=== PATIENT | female | born 1995 | race Caucasian/White ===

== ENCOUNTER → 2016-10-22 | Outpatient (CLI) | payer BC, OTHER ==
[~2016-10-22] MED LIST: CLIN2CRE PV; ESCI10TA17 PO; LISD30CA4 PO; PENC1CRE4 TOP; PREN1TAB51 PO; PRENTAB26 PO; ZIPR20CA PO; ZOLP10TA PO
[2016-10-22 13:45] LABS: PREG INTERNAL NEGATIVE QC NEG CLEAR BACKGROUND; PREG INTERNAL POSITIVE QC POS CONTROL LINE
== END | disposition home or self-care (01) ==
LOC: C.LABSPEC 14:27
PROVIDERS: ATTEND Obstetrics & Gynecology
DX: Z30.45 Encounter for surveillance of transdermal patch hormonal contraceptive device (principal)

== ENCOUNTER → 2016-10-22 | Outpatient (CLI) | payer BC | END | disposition home or self-care (01) | LOC: C.PAPS 13:46 | PROVIDERS: ATTEND Obstetrics & Gynecology | DX: N87.0 Mild cervical dysplasia (principal) ==

== ENCOUNTER → 2016-11-02 | Outpatient (CLI) | payer BC ==
--- NOTE | 2016-11-02 16:49 | DIAGNOSTIC IMAGING REPORT ---
CT OF THE ABDOMEN AND PELVIS WITHOUT CONTRAST, STONE PROTOCOL CLINICAL HISTORY: Left flank pain. COMPARISON STUDY: Pelvic ultrasound March 29, 2014. TECHNIQUE: Helical axial images of the abdomen and pelvis were obtained without IV or oral contrast according to renal stone protocol. FINDINGS: Lung bases are clear. No renal, ureteral or bladder calculi are present. There is no hydronephrosis or hydroureter. The caliber of small large bowel are normal. The appendix is normal. A tampon is in place. No ascites is present. There is no lymphadenopathy. The ovaries are not enlarged. Skeletal structures are unremarkable. No biliary or pancreatic ductal dilatation is present. There is no peripancreatic or pericholecystic infiltration. IMPRESSION: 1. No urinary calculi or hydronephrosis. 2. No acute process within the abdomen or pelvis. Electronically signed by: Amaury Hamilton M.D. 11/02/2016 4:47 PM Dictated Date/Time: 11/02/2016 4:41 PM
== END | disposition home or self-care (01) ==
LOC: C.CTS 16:26
PROVIDERS: ATTEND Nurse Practitioner
DX: R10.9 Unspecified abdominal pain (principal)

== ENCOUNTER → 2016-12-17 | Outpatient (CLI) | payer BC, OTHER ==
[2016-12-17 12:45] LABS: BASO % 0.3 %; BASO ABS # 0.03 K/uL (0-0.2); COMPLETE YES; EOS % 0.3 %; HEMATOCRIT 40.8 % (37-47); IG% 0.3 %; LYMPH % 13.1 %; LYMPH ABS # 1.55 K/uL (1.2-3.4); MEAN CELL VOLUME 84.5 fL (80-100); MEAN CORPUSCULAR HEMOGLOBIN 29.2 pg (25-34); MEAN CORPUSCULAR HGB CONC 34.6 g/dl (32-36); MEAN PLATELET VOLUME 10.4 fL (7.4-10.4); MONO % 6.2 %; NEUT % 79.8 %; PLATELET COUNT 214 K/uL (130-400); RED BLOOD COUNT 4.83 M/uL (4.2-5.4)
[2016-12-17 12:53] LABS: ALT/SGPT 29 U/L (12-78); AST/SGOT 11 U/L (15-37); BLOOD UREA NITROGEN 9 mg/dl (7-18); BUN/CREATININE RATIO 11.6 (10-20); CALCIUM 9.6 mg/dl (8.5-10.1); CARBON DIOXIDE 22 mmol/L (21-32); CHLORIDE 104 mmol/L (98-107); CHOLESTEROL 118 mg/dl (0-200); CREATININE 0.81 mg/dl (0.60-1.20); GLUCOSE 89 mg/dl (70-99); MAGNESIUM 2.2 mg/dl (1.8-2.4); POTASSIUM 3.7 mmol/L (3.5-5.1); SODIUM 141 mmol/L (136-145); TRIGLYCERIDES 48 mg/dl (0-150); VERY LOW DENSITY LIPOPROT CALC 10 mg/dl
[2016-12-17 13:01] LABS: ALB/GLOB RATIO 1.1 (0.9-2); ALKALINE PHOSPHATASE 67 U/L (45-117); CHOLESTEROL/HDL RATIO 2.4; HDL CHOLESTEROL 50 mg/dl; LDL CHOLESTEROL CALCULATED 58 mg/dl; THYROID STIMULATING HORMONE 0.485 uIu/ml (0.300-4.500); TOTAL IRON BINDING CAPACITY 349 mcg/dl (250-450)
[2016-12-17 13:12] LABS: BENZODIAZEPINE, URINE NEG (NEG); COCAINE,URINE NEG (NEG); PHENCYCLIDINE, URINE NEG (NEG)
--- NOTE | 2016-12-21 09:49 | CODING QUERY MEDICAL NECESSITY ---
SUPPORTING DIAGNOSIS NEEDED A supporting diagnosis is required for the test/procedure performed on this patient in order for us to be reimbursed by the patient's insurance. Please provide a supporting diagnosis for the following test/procedure listed below next to the test name along with your signature. *If there is no additional diagnosis for this patient that would support the following test/procedure please document that below next to the test/procedure. Test(s)/Procedure(s) that require a supporting diagnosis: * VITAMIN D 25-HYDROXY DIAGNOSIS: * URINE DRUG SCREEN DIAGNOSIS: * VITAMIN B-12 LEVEL DIAGNOSIS: * FOLATE LEVEL DIAGNOSIS: * DOS: 12/17/16 Provider Signature: Date: Thank you Jennifer Kaye Health Information Management Once completed, please kindly fax back to [phone] For questions please call [phone]
== END | disposition home or self-care (01) ==
LOC: C.LABBFT 11:04
PROVIDERS: ATTEND Psychiatry & Neurology Psychiatry
DX: F41.0 Panic disorder [episodic paroxysmal anxiety] (principal); Z13.21 Encounter for screening for nutritional disorder

== ENCOUNTER 2016-12-27 15:16 | Emergency (ER) | payer BC, OTHER ==
[~2016-12-27] VITALS: Ht 160 cm; Wt 69.9 kg
[~2016-12-27 15:16] MED LIST changes: -CLIN2CRE PV; -LISD30CA4 PO; -PENC1CRE4 TOP; -PREN1TAB51 PO; -ZIPR20CA PO; -ZOLP10TA PO
[2016-12-27 15:20] VITALS: TEMP 36.7; Ht 160 cm; Wt 69.9 kg
[2016-12-27] MEDS ORDERED: ONDANSETRON INJ 2 MG/ML 2 ML VIAL IV STA (15:35)
[2016-12-27] MEDS ORDERED: ZOLP10TA PO (15:48)
[2016-12-27] MEDS ORDERED: LISD30CA4 PO (15:48)
[2016-12-27] MEDS ORDERED: ZIPR20CA PO (15:48)
[2016-12-27 15:49] VITALS: O2SAT 99
--- NOTE | 2016-12-27 15:56 | DIAGNOSTIC IMAGING REPORT ---
CHEST ONE VIEW PORTABLE CLINICAL HISTORY: Evaluate Fever/Sepsis dyspnea COMPARISON STUDY: No previous studies for comparison. FINDINGS: The bones soft tissues and hemidiaphragms are normal. The cardiomediastinal silhouette is normal. The lungs are clear. The pulmonary vasculature is normal. IMPRESSION: Negative chest. Electronically signed by: Loco Perez M.D. 12/27/2016 3:55 PM Dictated Date/Time: 12/27/2016 3:54 PM
[2016-12-27 16:12] LABS: BASO % 0.4 %; BASO ABS # 0.04 K/uL (0-0.2); COMPLETE YES; EOS % 0.7 %; HEMATOCRIT 44.4 % (37-47); IG% 0.3 %; LYMPH % 39.8 %; LYMPH ABS # 3.54 K/uL (1.2-3.4); MEAN CELL VOLUME 83.8 fL (80-100); MEAN CORPUSCULAR HEMOGLOBIN 29.1 pg (25-34); MEAN CORPUSCULAR HGB CONC 34.7 g/dl (32-36); MEAN PLATELET VOLUME 9.9 fL (7.4-10.4); MONO % 6.9 %; NEUT % 51.9 %; PLATELET COUNT 318 K/uL (130-400); WHITE BLOOD COUNT 8.89 K/uL (4.8-10.8)
[2016-12-27 16:27] LABS: ALT/SGPT 30 U/L (12-78); AST/SGOT 11 U/L (15-37); BLOOD UREA NITROGEN 6 mg/dl (7-18); BUN/CREATININE RATIO 7.7 (10-20); CALCIUM 9.8 mg/dl (8.5-10.1); CARBON DIOXIDE 29 mmol/L (21-32); CHLORIDE 103 mmol/L (98-107); CREATININE 0.74 mg/dl (0.60-1.20); GLUCOSE 85 mg/dl (70-99); POTASSIUM 3.6 mmol/L (3.5-5.1); SODIUM 139 mmol/L (136-145)
[2016-12-27 16:38] LABS: ALKALINE PHOSPHATASE 70 U/L (45-117); CKMB/CK RATIO 0.7 (0-3.0); THYROID STIMULATING HORMONE 0.335 uIu/ml (0.300-4.500)
--- NOTE | 2016-12-27 17:17 | EMERGENCY ROOM VISIT NOTE ---
History Report prepared by Glynn: Alex Queen Under the Supervision of: Dr. Sidney Mahajan D.O. First contact with patient: 15:28 Chief Complaint: CHEST PAIN Stated Complaint: HEART RHYTHM /PAIN, FINGER/TOE NUMB, N, CONN, VISION Nursing Triage Summary: Pt presents with c/o "I've been feeling sick for a few days. My chest hurts. My heart feels funny. I get numbness and tingling in my arms and legs. I get nausea. I take some daily medications and I don't know if they are being filtered out as fast as they are put in. I can't stop clenching my jaw." History of Present Illness The patient is a 21 year old female who presents to the Emergency Room with complaints of persistent chest discomfort for the past several days. The patient describes a tight sensation in her chest. She also complains of lightheadedness, nausea, and tingling in her fingers and toes for the past several days. The patient is concerned that her symptoms could be related to Vyvanse use She takes Vyvanse for ADD. The patient noted that she "cannot stop clenching her jaw." Her LNMP ended yesterday, which was normal. She has a two year old child at home. Source of History: patient Onset: several days Position: chest Quality: other (tightness) Timing: other (persistent) Associated Symptoms: + nausea, + numbness Review of Systems See HPI for pertinent positives & negatives. A total of 10 systems reviewed and were otherwise negative. Past Medical & Surgical Medical Problems: (1) Ear infection (2) Migraines Surgical Problems: (1) History of tonsillectomy (2) [place] teeth extracted Family History No pertinent family history Social History Smoking Status: Former Smoker Alcohol Use: none Marital Status: single Housing Status: lives with family Occupation Status: unemployed Current/Historical Medications Scheduled Lisdexamfetamine Dimesylate (Vyvanse), 30 MG PO QAM Ziprasidone Hcl (Geodon), 25 MG PO QPM Zolpidem Tartrate (Ambien), 10 MG PO HS Allergies Coded Allergies: Diphenhydramine (Verified Allergy, Mild, ITCHING, 12/27/16) Physical Exam Vital Signs Date Time Temp Pulse Resp B/P Pulse Ox O2 Delivery O2 Flow Rate FiO2 12/27/16 16:00 100 Room Air 12/27/16 15:54 76 12/27/16 15:49 99 Room Air 12/27/16 15:20 36.7 82 18 124/86 98 Room Air Physical Exam CONSTITUTIONAL/VITAL SIGNS: Reviewed / noted above. GENERAL: Non-toxic in appearance. INTEGUMENTARY: Warm, dry, and [place]. HEAD: Normocephalic. EYES: without scleral icterus or trauma. ENT/OROPHARYNX: clear and moist. LYMPHADENOPATHY/NECK: Is supple without lymphadenopathy or meningismus. RESPIRATORY: Lungs clear and equal. CARDIOVASCULAR: Regular rate and rhythm. GI/ABDOMEN: Soft and nontender. No organomegaly or pulsatile mass. No rebound or guarding. Normal bowel sounds. EXTREMITIES: Warm and well perfused. BACK: No CVA tenderness. NEUROLOGICAL: Intact without focal deficits. PSYCHIATRIC: normal affect. MUSCULOSKELETAL: Normally developed with good muscle tone. Medical Decision & Procedures ER Provider Diagnostic Interpretation: X ray results and stated below per my interpretation and radiology interpretation. CHEST ONE VIEW PORTABLE CLINICAL HISTORY: Evaluate Fever/Sepsis dyspnea COMPARISON STUDY: No previous studies for comparison. FINDINGS: The bones soft tissues and hemidiaphragms are normal. The cardiomediastinal silhouette is normal. The lungs are clear. The pulmonary vasculature is normal. IMPRESSION: Negative chest. Electronically signed by: Loco Perez M.D. 12/27/2016 3:55 PM Dictated Date/Time: 12/27/2016 3:54 PM Laboratory Results 12/27/16 16:00 Red Blood Count 5.30, Mean Corpuscular Volume 83.8, Mean Corpuscular Hemoglobin 29.1, Mean Corpuscular Hemoglobin Concent 34.7, Mean Platelet Volume 9.9, Neutrophils (%) (Auto) 51.9, Lymphocytes (%) (Auto) 39.8, Monocytes (%) (Auto) 6.9, Eosinophils (%) (Auto) 0.7, Basophils (%) (Auto) 0.4, Neutrophils # (Auto) 4.61, Lymphocytes # (Auto) 3.54, Monocytes # (Auto) 0.61, Eosinophils # (Auto) 0.06, Basophils # (Auto) 0.04 12/27/16 16:00 Test 12/27/16 16:00 White Blood Count 8.89 K/uL (4.8-10.8) Red Blood Count 5.30 M/uL (4.2-5.4) Hemoglobin 15.4 g/dL (12.0-16.0) Hematocrit 44.4 % (37-47) Mean Corpuscular Volume 83.8 fL (80-100) Mean Corpuscular Hemoglobin 29.1 pg (25-34) Mean Corpuscular Hemoglobin Concent 34.7 g/dl (32-36) Platelet Count 318 K/uL (130-400) Mean Platelet Volume 9.9 fL (7.4-10.4) Neutrophils (%) (Auto) 51.9 % Lymphocytes (%) (Auto) 39.8 % Monocytes (%) (Auto) 6.9 % Eosinophils (%) (Auto) 0.7 % Basophils (%) (Auto) 0.4 % Neutrophils # (Auto) 4.61 K/uL (1.4-6.5) Lymphocytes # (Auto) 3.54 K/uL (1.2-3.4) Monocytes # (Auto) 0.61 K/uL (0.11-0.59) Eosinophils # (Auto) 0.06 K/uL (0-0.5) Basophils # (Auto) 0.04 K/uL (0-0.2) RDW Standard Deviation 42.4 fL (36.4-46.3) RDW Coefficient of Variation 13.9 % (11.5-14.5) Immature Granulocyte % (Auto) 0.3 % Immature Granulocyte # (Auto) 0.03 K/uL (0.00-0.02) Anion Gap 7.0 mmol/L (3-11) Est Creatinine Clear Calc Drug Dose 111.8 ml/min Estimated GFR () 133.3 Estimated GFR (Non- 115.0 BUN/Creatinine Ratio 7.7 (10-20) Calcium Level 9.8 mg/dl (8.5-10.1) Total Bilirubin 0.4 mg/dl (0.2-1) Direct Bilirubin < 0.1 mg/dl (0-0.2) Aspartate Amino Transf (AST/SGOT) 11 U/L (15-37) Alanine Aminotransferase (ALT/SGPT) 30 U/L (12-78) Alkaline Phosphatase 70 U/L (45-117) Total Creatine Kinase 121 U/L (26-192) Creatine Kinase MB 0.9 ng/ml (0.5-3.6) Creatine Kinase MB Ratio 0.7 (0-3.0) Troponin I < 0.015 ng/ml (0-0.045) Total Protein 7.9 gm/dl (6.4-8.2) Albumin 4.4 gm/dl (3.4-5.0) Lipase 167 U/L (73-393) Thyroid Stimulating Hormone (TSH) 0.335 uIu/ml (0.300-4.500) Laboratory results as stated above per my review. Medications Administered Medications (Trade) Dose Ordered Sig/Ry Route Start Time Stop Time Status Last Admin Dose Admin Ondansetron HCl (Zofran Inj) 4 mg NOW STAT IV 12/27/16 15:35 12/27/16 15:37 DC 12/27/16 15:58 4 MG ECG Indication: chest pain Rate (beats per minute): 65 Rhythm: normal sinus Findings: no acute ischemic change, no ectopy ED Course 1535: Previous medical records were reviewed. The patient was evaluated in room B5. A complete history and physical examination was performed. 1535: Zofran 4 mg IV. 1730: Reassessed the patient. Discussed the discharge instructions with her. She verbalized understanding and agreement. The patient is ready for discharge. Medical Decision Differential considered includes acute myocardial infarction, acute coronary syndrome, myocarditis, pericarditis, pericardial effusions /tamponade, esophageal perforation, thoracic aortic dissection, pulmonary embolism, pneumonia, pneumothorax, pancreatitis, shingles, acute cholecystitis, perforated abdominal viscus. This is a 21-year-old female who presents to the ED with a chief complaint of chest pain, lightheadedness as well as tingling in her fingers and toes. The patient's symptoms started several days ago. She has the symptoms intermittently. She describes the chest pain as a tightness in her chest. She has associated nausea. Her physical exam was normal. Vital signs are stable. CBC is normal. Complete metabolic panel was normal. Troponin is negative. TSH was normal. A chest x-ray did not show acute disease. EKG shows a normal sinus rhythm. The patient was told results the test. She is in no distress and is felt to be stable for discharge. Impression Primary Impression: Chest tightness or pressure Additional Impression: Lightheaded Scribe Attestation The scribe's documentation has been prepared under my direction and personally reviewed by me in its entirety. I confirm that the note above accurately reflects all work, treatment, procedures, and medical decision making performed by me. Departure Information Dispostion Home / Self-Care Referrals Obinna Paige M.D. (PCP) Forms HOME CARE DOCUMENTATION FORM, IMPORTANT VISIT INFORMATION Patient Instructions My [facility] Additional Instructions Follow-up with your doctor for further care and evaluation in 1-2 days. Return to the emergency department for worsening or new symptoms or any concerns. You have been examined and treated today on an emergency basis only. This is not a substitute for, or an effort to provide, complete comprehensive medical care. It is impossible to recognize and treat all injuries or illnesses in a single emergency department visit. It is therefore important that you follow up closely with your doctor. Call as soon as possible for an appointment. Problem Qualifiers
[2016-12-27 18:07] VITALS: BP 114/68; PULSE 84; O2SAT 97
== END 2016-12-27 18:08 | disposition home or self-care (01) ==
LOC: C.EDB 15:18
DX: R07.9 Chest pain, unspecified (principal); R42 Dizziness and giddiness; Z87.891 Personal history of nicotine dependence; Z79.899 Other long term (current) drug therapy

== ENCOUNTER 2017-03-11 13:58 | Emergency (ER) | payer BC, OTHER ==
[~2017-03-11] VITALS: Ht 160 cm; Wt 70.3 kg
[~2017-03-11 13:58] MED LIST changes: -ESCI10TA17 PO; +LISD30CA4 PO; -PRENTAB26 PO; +ZIPR20CA PO; +ZOLP10TA PO
[2017-03-11 14:02] VITALS: TEMP 36.7; Ht 160 cm; Wt 70.3 kg
[2017-03-11 14:47] LABS: URINE APPEARANCE CLOUDY (CLEAR); URINE BILIRUBIN NEG (NEG); URINE COLOR YELLOW; URINE NITRITE NEG (NEG); URINE SPECIFIC GRAVITY 1.018 (1.000-1.030); UROBILINOGEN NEG (NEG); ZZUR CULT IF INDIC CLEAN CATCH NO
[2017-03-11 14:48] LABS: MANUAL MICROSCOPIC REQUIRED? NO; REVIEW REQ? NO
[2017-03-11 15:10] LABS: HEMATOCRIT 38.7 % (37-47); MEAN CELL VOLUME 87.2 fL (80-100); MEAN CORPUSCULAR HEMOGLOBIN 29.3 pg (25-34); MEAN CORPUSCULAR HGB CONC 33.6 g/dl (32-36); MEAN PLATELET VOLUME 9.9 fL (7.4-10.4); PLATELET COUNT 230 K/uL (130-400); RED BLOOD COUNT 4.44 M/uL (4.2-5.4); WHITE BLOOD COUNT 8.04 K/uL (4.8-10.8)
[2017-03-11 15:24] LABS: BUN/CREATININE RATIO 12.5 (10-20); CALCIUM 8.6 mg/dl (8.5-10.1); CREATININE 0.66 mg/dl (0.60-1.20); POTASSIUM 3.8 mmol/L (3.5-5.1)
[2017-03-11 15:27] LABS: ALB/GLOB RATIO 1.3 (0.9-2)
[2017-03-11 15:41] LABS: BASO % 0.4 %; BASO ABS # 0.03 K/uL (0-0.2); COMPLETE YES; EOS % 0.6 %; IG% 0.1 %; LYMPH % 26.4 %; LYMPH ABS # 2.12 K/uL (1.2-3.4); MONO % 7.3 %; NEUT % 65.2 %
[2017-03-11 15:44] LABS: PREG INTERNAL NEGATIVE QC NEG CLEAR BACKGROUND; PREG INTERNAL POSITIVE QC POS CONTROL LINE
--- NOTE | 2017-03-11 15:59 | EMERGENCY ROOM VISIT NOTE ---
History First contact with patient: 14:07 Chief Complaint: URINARY SYMPTOMS Stated Complaint: UTI - 4 TO 5 WEEKS Nursing Triage Summary: Pt reports painful urination and bilat flank pain History of Present Illness The patient is a 21 year old female who presents to the Emergency Room via private vehicle with complaints " UTI - 4-5 weeks ". The patient states that yesterday she noticed painful urination, and then pain radiating in the pelvic region to the back. She states that she has had pain similar to this in the past with frequent UTIs. She also notes a dull ache in the anterior inferior pelvic region for the past few weeks. She notes it is not a pain, rather just a dull ache. She denies any vaginal bleeding, cramping, vaginal discharge, concern for sexual transmitted infection. She has had a miscarriage in the past. She states that at home she has taken 6 urine tests all of which have been positive. She states that the first day of her last menstrual cycle was February 09. She states that she ovulated the and . She states that she started the urine test 10 day after, on March 05 and these were found to be positive. She states that she was seen at [facility], who jorje a quantitative hCG levels on March 08. These levels were subsequent found to be 39.5 after the record was accessed by our casework manager. Review of Systems A complete 10-point Review of Systems was discussed with the patient, with pertinent positives and negatives listed in the History of Present Illness. All remaining Review of Systems questions can be considered negative unless otherwise specified.6 Past Medical/Surgical History Medical Problems: (1) Ear infection (2) Migraines Surgical Problems: (1) History of tonsillectomy (2) [place] teeth extracted Family History Heart disease, blood pressure, cancer, kidney disease or stones, GI/autoimmune. Social History Smoking Status: Former Smoker Alcohol Use: none Marital Status: single Housing Status: lives with family Occupation Status: unemployed Current/Historical Medications No Active Prescriptions or Reported Meds Allergies Coded Allergies: Diphenhydramine (Verified Allergy, Mild, ITCHING, 03/11/17) Physical Exam Vital Signs Date Time Temp Pulse Resp B/P Pulse Ox O2 Delivery O2 Flow Rate FiO2 03/11/17 18:13 65 18 118/67 99 Room Air 03/11/17 16:06 69 18 115/73 100 Room Air 03/11/17 14:02 36.7 83 18 108/67 99 Room Air Physical Exam VITAL SIGNS - Vital signs and nursing notes were reviewed. Patient is afebrile , normotensive, non-tachycardic and is saturating well on room air at 99%. GENERAL -21-year-old female appearing her stated age who is in no acute distress. Communicates well with provider and answers questions appropriately. SKIN - Without rashes. The integument is unremarkable. HEAD - NC/AT. EYES - Sclera anicteric. Palpebral conjunctiva pink and moist with no injection noted. EARS - No deformities of external structures noted on gross examination bilaterally. LUNGS - Chest wall symmetric without accessory muscle use, intercostals retractions, or central cyanosis. Normal vesicular breath sounds CTA B/L. No wheezes, rales, or rhonchi appreciated. CARDIAC - RRR with S1/S2. No murmur, rubs, or gallops appreciated. ABDOMEN - Abdominal contour without pulsations or visible masses. BS normoactive all four quadrants. No tenderness, palpable masses, hepatosplenomegaly, or ascites noted. There is a generalized dull ache to palpation of the abdomen. No CVA tenderness. EXTREMITIES - No clubbing or peripheral cyanosis. No pretibial edema present. +5 /5 strength noted in UE/LE bilaterally. Medical Decision & Procedures ER Provider Diagnostic Interpretation: TRANSVAGINAL CLINICAL HISTORY: Pelvic pain, dysuria, +HCG. COMPARISON STUDY: ultrasound November 13, [address] of the abdomen and pelvis November 02, 2016. TECHNIQUE: Transabdominal and transvaginal sonography of the pelvis was performed. FINDINGS: The uterus measures 7.6 x 4 x 4.5 cm. The endometrium measures 7 mm in thickness. No intrauterine gestational sac is identified. The right ovary measures 3.1 x 1.7 x 2.1 cm. A 1.5 cm right ovarian lesion could reflect a corpus luteal cyst. The left ovary measures 3 x 1.3 x 2.5 cm. There was color flow within each ovary. Trace fluid within the cul-de-sac is likely physiologic. IMPRESSION: No intrauterine gestational sac identified. If positive test, differential considerations include a normal early intrauterine gestation, missed spontaneous and sonographically occult ectopic . Close clinical follow-up, including serial beta hCG levels, is recommended. Electronically signed by: Amaury Hamilton M.D. 03/11/2017 5:12 PM Dictated Date/Time: 03/11/2017 5:09 PM Laboratory Results 03/11/17 14:45 Red Blood Count 4.44, Mean Corpuscular Volume 87.2, Mean Corpuscular Hemoglobin 29.3, Mean Corpuscular Hemoglobin Concent 33.6, Mean Platelet Volume 9.9, Neutrophils (%) (Auto) 65.2, Lymphocytes (%) (Auto) 26.4, Monocytes (%) (Auto) 7.3, Eosinophils (%) (Auto) 0.6, Basophils (%) (Auto) 0.4, Neutrophils # (Auto) 5.24, Lymphocytes # (Auto) 2.12, Monocytes # (Auto) 0.59, Eosinophils # (Auto) 0.05, Basophils # (Auto) 0.03 03/11/17 14:45 Test 03/11/17 14:18 03/11/17 14:45 Urine Color YELLOW Urine Appearance CLOUDY (CLEAR) Urine pH 7.0 (4.5-7.5) Urine Specific [place] 1.018 (1.000-1.030) Urine Protein NEG (NEG) Urine Glucose (UA) NEG (NEG) Urine Ketones NEG (NEG) Urine Occult Blood NEG (NEG) Urine Nitrite NEG (NEG) Urine Bilirubin NEG (NEG) Urine Urobilinogen NEG (NEG) Urine Leukocyte Esterase NEG (NEG) Urine WBC (Auto) 1-5 /hpf (0-5) Urine RBC (Auto) 0-4 /hpf (0-4) Urine Hyaline Casts (Auto) 0 /lpf (0-5) Urine Epithelial Cells (Auto) 10-20 /lpf (0-5) Urine Bacteria (Auto) NEG (NEG) Urine Test NEG (NEG) White Blood Count 8.04 K/uL (4.8-10.8) Red Blood Count 4.44 M/uL (4.2-5.4) Hemoglobin 13.0 g/dL (12.0-16.0) Hematocrit 38.7 % (37-47) Mean Corpuscular Volume 87.2 fL (80-100) Mean Corpuscular Hemoglobin 29.3 pg (25-34) Mean Corpuscular Hemoglobin Concent 33.6 g/dl (32-36) Platelet Count 230 K/uL (130-400) Mean Platelet Volume 9.9 fL (7.4-10.4) Neutrophils (%) (Auto) 65.2 % Lymphocytes (%) (Auto) 26.4 % Monocytes (%) (Auto) 7.3 % Eosinophils (%) (Auto) 0.6 % Basophils (%) (Auto) 0.4 % Neutrophils # (Auto) 5.24 K/uL (1.4-6.5) Lymphocytes # (Auto) 2.12 K/uL (1.2-3.4) Monocytes # (Auto) 0.59 K/uL (0.11-0.59) Eosinophils # (Auto) 0.05 K/uL (0-0.5) Basophils # (Auto) 0.03 K/uL (0-0.2) RDW Standard Deviation 43.8 fL (36.4-46.3) RDW Coefficient of Variation 13.7 % (11.5-14.5) Immature Granulocyte % (Auto) 0.1 % Immature Granulocyte # (Auto) 0.01 K/uL (0.00-0.02) Red Blood Cell Morphology Unremarkable Anion Gap 1.0 mmol/L (3-11) Est Creatinine Clear Calc Drug Dose 125.7 ml/min Estimated GFR () 145.3 Estimated GFR (Non- 125.4 BUN/Creatinine Ratio 12.5 (10-20) Calcium Level 8.6 mg/dl (8.5-10.1) Total Bilirubin 0.4 mg/dl (0.2-1) Aspartate Amino Transf (AST/SGOT) 13 U/L (15-37) Alanine Aminotransferase (ALT/SGPT) 25 U/L (12-78) Alkaline Phosphatase 63 U/L (45-117) Total Protein 6.8 gm/dl (6.4-8.2) Albumin 3.8 gm/dl (3.4-5.0) Globulin 3.0 gm/dl (2.5-4.0) Albumin/Globulin Ratio 1.3 (0.9-2) Human Chorionic Gonadotropin, Qual POS (NEG) Human Chorionic Gonadotropin, Quant 12 mIU/mL Medical Decision Patient was seen and evaluated as above. After obtaining a thorough history and physical examination, it is apparent that the patient is presenting with urinary tract infection like symptoms. No evidence of pyelonephritis on examination. The patient stated that she used at home test, therefore when her urine sample was tested here I decided to also dipped for urine test. The urine test was found to be negative. The urine was also negative. This is now concerning for other etiologies. The patient notes that she did have a quantitative level drawn at [facility], but does not know the result. I did elect to establish IV access and obtain a value of hCG quantitative here. Our level was found to be 12, and that was today on March 11, this is compared to 39.5 which was found on March 08. There is concern for demise, and other complications of early . For this reason, benefit versus risk of obtaining ultrasound was discussed with the patient. It was decided to pursue the ultrasound. Results as above. No abnormalities identified. I suspect the patient is likely experiencing threatened miscarriage, and close follow-up with serial hCGs is warranted. The patient was thoroughly educated upon today's findings. She is to call her OB/ HUMAN RESOURCES ASSISTANT and family doctor tomorrow to inform them of today's findings, specifically to request follow-up and serial hCG levels. She seemed comfortable doing this. I do not suspect UTI. I suspect the patient's symptoms are likely secondary to that threatened miscarriage. I do believe that she is stable for discharge, extremity managed in the outpatient setting. I did speak with our casework manager regarding our walk-in lab hours to assist the patient. The patient is to have a repeat hCG drawn Saturday. She is to return here with any worsening symptoms or concerns. She was educated upon worrisome symptoms which to return , had questions prior to discharge, and was discharged home in good condition. In the evaluation and treatment of this patient following differential diagnoses were entertained: Ectopic , UTI, pyelonephritis, threatened miscarriage, among others. Impression Primary Impression: Threatened miscarriage Departure Information Dispostion Home / Self-Care Condition GOOD Prescriptions No Active Prescriptions or Reported Meds Referrals Obinna Paige M.D. (PCP) Patient Instructions My [facility] Additional Instructions You were seen in the emergency department for your painful urination and dull ache in the pelvis region. Your ultrasound results have been printed and provided to you. At this time we suspect you are experiencing a threatened miscarriage. If you develop increased pain, feeling of passing out, or any new/concerning symptoms please return medially. Your hCG level was found to have decreased today compared to her previous hCG level. It is recommended that you have this repeated on Saturday. If you're unable to have an order please [phone] Please call your TELEGRAPH AND TELETYPE OPERATOR first thing tomorrow morning to schedule follow-up and request repeat hCG level for Saturday. It is recommended you do not try to conceive another child until clearing this with TELEGRAPH AND TELETYPE OPERATOR. Please return to the emergency department with any new/concerning symptoms.
--- NOTE | 2017-03-11 17:13 | DIAGNOSTIC IMAGING REPORT ---
TRANSVAGINAL CLINICAL HISTORY: Pelvic pain, dysuria, +HCG. COMPARISON STUDY: ultrasound November 13, [address] of the abdomen and pelvis November 02, 2016. TECHNIQUE: Transabdominal and transvaginal sonography of the pelvis was performed. FINDINGS: The uterus measures 7.6 x 4 x 4.5 cm. The endometrium measures 7 mm in thickness. No intrauterine gestational sac is identified. The right ovary measures 3.1 x 1.7 x 2.1 cm. A 1.5 cm right ovarian lesion could reflect a corpus luteal cyst. The left ovary measures 3 x 1.3 x 2.5 cm. There was color flow within each ovary. Trace fluid within the cul-de-sac is likely physiologic. IMPRESSION: No intrauterine gestational sac identified. If positive test, differential considerations include a normal early intrauterine gestation, missed spontaneous and sonographically occult ectopic . Close clinical follow-up, including serial beta hCG levels, is recommended. Electronically signed by: Amaury Hamilton M.D. 03/11/2017 5:12 PM Dictated Date/Time: 03/11/2017 5:09 PM
[2017-03-11 18:13] VITALS: BP 118/67; PULSE 65; O2SAT 99
[2017-05-02] MEDS ORDERED: PENC1CRE33 TOP (21:24)
== END 2017-03-11 18:23 | disposition home or self-care (01) ==
LOC: C.EDB 14:00 → C.EDA 18:23
DX: O20.0 Threatened abortion (principal); Z87.440 Personal history of urinary (tract) infections; Z87.59 Personal history of other complications of pregnancy, childbirth and the puerperium; Z87.891 Personal history of nicotine dependence; Z98.818 Other dental procedure status; Z90.89 Acquired absence of other organs

== ENCOUNTER → 2017-03-13 | Outpatient (CLI) | payer BC, OTHER ==
[~2017-03-13] MED LIST changes: +CLIN2CRE PV; +CLOT1CRE3 PV; +DOCU100C31 PO; -LISD30CA4 PO; +PENC1CRE33 TOP; +POLY335019 PO; +PREN1TAB51 PO; -ZIPR20CA PO; -ZOLP10TA PO
== END | disposition home or self-care (01) ==
LOC: C.LAB 17:47
PROVIDERS: ATTEND Obstetrics & Gynecology
DX: O20.0 Threatened abortion (principal); Z3A.00 Weeks of gestation of pregnancy not specified

== ENCOUNTER → 2017-04-04 | Outpatient (CLI) | payer BC, OTHER | END | disposition home or self-care (01) | LOC: C.LAB 18:39 | PROVIDERS: ATTEND Obstetrics & Gynecology | DX: O20.0 Threatened abortion (principal) ==

== ENCOUNTER → 2017-04-06 | Outpatient (CLI) | payer BC, OTHER | END | disposition home or self-care (01) | LOC: C.LAB 11:30 | PROVIDERS: ATTEND Physician Assistant | DX: O20.0 Threatened abortion (principal); Z3A.00 Weeks of gestation of pregnancy not specified ==

== ENCOUNTER → 2017-04-08 | Outpatient (CLI) | payer BC, OTHER | END | disposition home or self-care (01) | LOC: C.LAB 16:15 | PROVIDERS: ATTEND Physician Assistant | DX: O20.0 Threatened abortion (principal); Z3A.00 Weeks of gestation of pregnancy not specified ==

== ENCOUNTER → 2017-04-10 | Outpatient (CLI) | payer BC, OTHER ==
[~2017-04-10] MED LIST changes: -CLOT1CRE3 PV; -DOCU100C31 PO; -PENC1CRE33 TOP; +PENC1CRE4 TOP; -POLY335019 PO
== END | disposition home or self-care (01) ==
LOC: C.LAB 18:26
PROVIDERS: ATTEND Physician Assistant
DX: O20.0 Threatened abortion (principal)

== ENCOUNTER 2017-05-02 20:33 | Emergency (ER) | payer BC, OTHER ==
[~2017-05-02] VITALS: Ht 160 cm; Wt 71.5 kg
[2017-05-02 20:52] VITALS: Ht 160 cm; Wt 71.5 kg
[2017-05-02] MEDS ORDERED: PENC1CRE4 TOP (21:24)
[2017-05-02] MEDS ORDERED: PREN1TAB51 PO (21:24)
[2017-05-02] MEDS ORDERED: SODIUM CHLORIDE 0.9% 1000ML 1,000 ML IV ONE (22:00)
[2017-05-02 22:42] LABS: BASO % 0.2 %; BASO ABS # 0.02 K/uL (0-0.2); COMPLETE YES; EOS % 2.3 %; HEMATOCRIT 38.3 % (37-47); IG% 0.1 %; LYMPH % 25.7 %; LYMPH ABS # 2.08 K/uL (1.2-3.4); MEAN CELL VOLUME 84.9 fL (80-100); MEAN CORPUSCULAR HGB CONC 34.2 g/dl (32-36); MONO % 10.3 %; NEUT % 61.4 %; PLATELET COUNT 196 K/uL (130-400); RED BLOOD COUNT 4.51 M/uL (4.2-5.4); WHITE BLOOD COUNT 8.09 K/uL (4.8-10.8)
[2017-05-02 22:44] LABS: URINE APPEARANCE CLEAR (CLEAR); URINE BILIRUBIN NEG (NEG); URINE COLOR YELLOW; URINE NITRITE NEG (NEG); URINE PH 7.5 (4.5-7.5); URINE SPECIFIC GRAVITY 1.018 (1.000-1.030); UROBILINOGEN NEG (NEG); ZZUR CULT IF INDIC CLEAN CATCH NO
[2017-05-02 22:54] LABS: MANUAL MICROSCOPIC REQUIRED? NO; REVIEW REQ? NO
[2017-05-02 22:58] LABS: PROTHROMBIN TIME (PATIENT) 11.1 SECONDS (9.0-12.0)
[2017-05-02 23:01] LABS: ALT/SGPT 23 U/L (12-78); AST/SGOT 10 U/L (15-37); BLOOD UREA NITROGEN 6 mg/dl (7-18); BUN/CREATININE RATIO 10.2 (10-20); CALCIUM 8.6 mg/dl (8.5-10.1); CARBON DIOXIDE 28 mmol/L (21-32); CHLORIDE 108 mmol/L (98-107); CREATININE 0.57 mg/dl (0.60-1.20); GLUCOSE 72 mg/dl (70-99); POTASSIUM 3.5 mmol/L (3.5-5.1); SODIUM 143 mmol/L (136-145)
[2017-05-02 23:04] LABS: ALB/GLOB RATIO 1.1 (0.9-2); ALKALINE PHOSPHATASE 61 U/L (45-117)
[2017-05-03 01:28] VITALS: BP 111/59; PULSE 76; O2SAT 99
--- NOTE | 2017-05-03 05:20 | EMERGENCY ROOM VISIT NOTE ---
History First contact with patient: 21:52 Chief Complaint: ED VAG BLEEDING Stated Complaint: SPOTTING 7+ WEEKS , HX OF MISCARRIAGE History of Present Illness The patient is a 22 year old female who presents to the Emergency Room with complaints of vaginal bleeding for the past several hours. The patient states that she has had bright red spotting on a pad over the past half day. The patient states that she is 7 weeks and did have ultrasound earlier this week showing an intrauterine gestation. The patient is felt to be a high risk patient due to history of miscarriages in the past. The patient is not having fever, chills, chest pain, chest tightness, shortness of breath, or abdominal pain. The patient is able to use the bathroom is normal. She has not taken anything [id number] for her symptoms. Review of Systems More than 10 systems were reviewed and otherwise negative with the exception of history of present illness. Past Medical/Surgical History Medical Problems: (1) Ear infection (2) Migraines Surgical Problems: (1) History of tonsillectomy (2) [place] teeth extracted Family History No pertinent family history Social History Smoking Status: Never Smoker Alcohol Use: none Marital Status: single Housing Status: lives with family Occupation Status: unemployed Current/Historical Medications Scheduled Vit W/ Ferrous Fumara (Pnv Plus Multivi), 1 TAB PO DAILY Scheduled PRN Penciclovir (Denavir), 1 APPLN TOP UD PRN for Cold Sore(s) Physical Exam Vital Signs Date Time Temp Pulse Resp B/P (MAP) Pulse Ox O2 Delivery O2 Flow Rate FiO2 05/03/17 01:28 76 16 111/59 99 05/03/17 00:44 75 16 105/69 99 Room Air 05/02/17 22:35 69 16 103/61 Room Air 05/02/17 20:52 36.9 82 18 103/65 99 Room Air Pain Rating (0-10): 0 Physical Exam VITALS: Vitals are noted on the nurse's note and reviewed by myself. Vital signs stable. GENERAL: Well-developed, well-nourished, white female, who is in no acute distress and resting comfortably. Patient is cooperative with the examination. HEAD: Normocephalic atraumatic. HEART: Regular rate and rhythm without murmurs gallops or rubs. LUNGS: Clear to auscultation bilaterally without wheezes, rales or rhonchi. No retractions or accessory muscle use. ABDOMEN: Positive normal bowel sounds x 4. Soft, nontender, without masses or organomegaly. No guarding or rebound tenderness. MUSCULOSKELETAL: No muscle atrophy, erythema, or edema noted. Full range of motion without joint tenderness in all extremities. Medical Decision & Procedures ER Provider Diagnostic Interpretation: Preliminary Findings Only See Final Report For Complete Findings US OB 1st TRIMESTER: Single live intrauterine without abnormalities except for suspected subarachnoid hemorrhage along the right aspect measuring 1.9 x 1.2 x 0.8 cm. Cervix long and closed. Blood flow seen to both ovaries. No adnexal masses. Estimated gestational age 7 weeks 2 days. heart rate 138. No other abnormalities. Laboratory Results 05/02/17 22:25 Red Blood Count 4.51, Mean Corpuscular Volume 84.9, Mean Corpuscular Hemoglobin 29.0, Mean Corpuscular Hemoglobin Concent 34.2, Mean Platelet Volume 10.0, Neutrophils (%) (Auto) 61.4, Lymphocytes (%) (Auto) 25.7, Monocytes (%) (Auto) 10.3, Eosinophils (%) (Auto) 2.3, Basophils (%) (Auto) 0.2, Neutrophils # (Auto ) 4.96, Lymphocytes # (Auto) 2.08, Monocytes # (Auto) 0.83, Eosinophils # (Auto ) 0.19, Basophils # (Auto) 0.02 05/02/17 22:25 Test 05/02/17 22:10 05/02/17 22:25 Urine Color YELLOW Urine Appearance CLEAR (CLEAR) Urine pH 7.5 (4.5-7.5) Urine Specific [place] 1.018 (1.000-1.030) Urine Protein NEG (NEG) Urine Glucose (UA) NEG (NEG) Urine Ketones NEG (NEG) Urine Occult Blood NEG (NEG) Urine Nitrite NEG (NEG) Urine Bilirubin NEG (NEG) Urine Urobilinogen NEG (NEG) Urine Leukocyte Esterase NEG (NEG) White Blood Count 8.09 K/uL (4.8-10.8) Red Blood Count 4.51 M/uL (4.2-5.4) Hemoglobin 13.1 g/dL (12.0-16.0) Hematocrit 38.3 % (37-47) Mean Corpuscular Volume 84.9 fL (80-100) Mean Corpuscular Hemoglobin 29.0 pg (25-34) Mean Corpuscular Hemoglobin Concent 34.2 g/dl (32-36) Platelet Count 196 K/uL (130-400) Mean Platelet Volume 10.0 fL (7.4-10.4) Neutrophils (%) (Auto) 61.4 % Lymphocytes (%) (Auto) 25.7 % Monocytes (%) (Auto) 10.3 % Eosinophils (%) (Auto) 2.3 % Basophils (%) (Auto) 0.2 % Neutrophils # (Auto) 4.96 K/uL (1.4-6.5) Lymphocytes # (Auto) 2.08 K/uL (1.2-3.4) Monocytes # (Auto) 0.83 K/uL (0.11-0.59) Eosinophils # (Auto) 0.19 K/uL (0-0.5) Basophils # (Auto) 0.02 K/uL (0-0.2) RDW Standard Deviation 39.6 fL (36.4-46.3) RDW Coefficient of Variation 12.9 % (11.5-14.5) Immature Granulocyte % (Auto) 0.1 % Immature Granulocyte # (Auto) 0.01 K/uL (0.00-0.02) Prothrombin Time 11.1 SECONDS (9.0-12.0) Prothromb Time International Ratio 1.0 (0.9-1.1) Activated Partial Thromboplast Time 27.1 SECONDS (21.0-31.0) Partial Thromboplastin Ratio 1.0 Anion Gap 7.0 mmol/L (3-11) Est Creatinine Clear Calc Drug Dose 145.5 ml/min Estimated GFR () > 150.0 Estimated GFR (Non- 130.7 BUN/Creatinine Ratio 10.2 (10-20) Calcium Level 8.6 mg/dl (8.5-10.1) Total Bilirubin 0.2 mg/dl (0.2-1) Aspartate Amino Transf (AST/SGOT) 10 U/L (15-37) Alanine Aminotransferase (ALT/SGPT) 23 U/L (12-78) Alkaline Phosphatase 61 U/L (45-117) Total Protein 7.0 gm/dl (6.4-8.2) Albumin 3.6 gm/dl (3.4-5.0) Globulin 3.4 gm/dl (2.5-4.0) Albumin/Globulin Ratio 1.1 (0.9-2) Human Chorionic Gonadotropin, Quant [id number] mIU/mL Medications Administered Medications (Trade) Dose Ordered Sig/Ry Route Start Time Stop Time Status Last Admin Dose Admin Sodium Chloride 1,000 ml @ 999 mls/hr Q1H1M ONCE IV 05/02/17 22:00 05/02/17 23:00 DC 05/02/17 22:00 999 MLS/HR ED Course Physical exam and history were performed. Nursing notes, EMR, and Medication List were personally reviewed. Patient appears to have vaginal bleeding in the first trimester of . We discussed pelvic exam and this was deferred by the patient. IV access was established and labs were obtained. The patient was hydrated with normal saline. She was sent for ultrasound. The patient's blood work is as above and was reviewed. She does not have a significantly elevated white blood cell count or gross anemia, or significant electrolyte imbalance. Her hCG quantitative is well over 100,000, which is appropriate based on a 7 week gestation. Ultrasound shows a live intrauterine with heart rate of 138. There does appear to be a subchorionic bleed, which likely is the cause of the vaginal bleeding. The patient does not need Rhogam I discussed the case with the on-call [facility] Corporate Statistical Financial Analyst. Recommendation was to follow up with their services outpatient. She will need repeat ultrasound. The patient was pleased with these findings and felt stable for discharge home. She was invited back to the ER with any new, worsening, or concerning symptoms. The chart was completed utilizing [employer] Speech Voice Recognition Software. Grammatical errors, random word insertions, pronoun errors, and incomplete sentences are an occasional consequence of this system due to software limitations, ambient noise, and hardware issues. Any formal questions or concerns about the content, text, or information contained within the body of this dictation should be directly addressed to the provider for clarification. . Medical Decision Differential diagnosis: Etiologies such as ectopic , dysfunction uterine bleeding, bleeding dyscrasia, trauma, infection, as well as others were entertained. Impression Primary Impression: Subchorionic hemorrhage in first trimester Departure Information Dispostion Home / Self-Care Condition GOOD Forms HOME CARE DOCUMENTATION FORM, IMPORTANT VISIT INFORMATION Patient Instructions My [facility] Additional Instructions You were seen and evaluated today on an emergency basis only. This is not a substitute for, or an effort to provide, complete comprehensive medical care. It is not possible to recognize and treat all injuries or illnesses in a single emergency department visit. For this reason it is recommended that you followup with MAINFRAME DEVELOPER by telephone in the morning to arrange a follow-up visit next week. You will likely need a repeat ultrasound. This will be facilitated by MAINFRAME DEVELOPER. You are welcome to return to the emergency department anytime with new, worsening, or concerning symptoms.
--- NOTE | 2017-05-03 06:30 | DIAGNOSTIC IMAGING REPORT ---
<14 WKS SINGLE CLINICAL HISTORY: vag bleed. 7wk preg bleeding TECHNIQUE: Ultrasound COMPARISON STUDY: None FINDINGS: Single, viable intrauterine . Estimated gestational age 7 weeks 2 days. A heart rate is confirmed at 1 38 bpm. Small subchorionic bleed measuring 1.5 x 1.0 cm IMPRESSION: Small subarachnoid bleed. Single, viable intrauterine estimated at 7 weeks 2 days gestational age. The above report was generated using voice recognition software. It may contain grammatical, syntax or spelling errors. Electronically signed by: Loco Perez M.D. 05/03/2017 6:28 AM Dictated Date/Time: 05/03/2017 6:27 AM
== END 2017-05-03 01:29 | disposition home or self-care (01) ==
LOC: C.EDB 20:35 → C.EDA 05-03 01:29
DX: O20.8 Other hemorrhage in early pregnancy (principal); Z3A.01 Less than 8 weeks gestation of pregnancy; Z79.899 Other long term (current) drug therapy

== ENCOUNTER → 2017-05-07 | Outpatient (CLI) | payer BC, OTHER ==
[2017-05-07 19:01] LABS: URINE APPEARANCE CLEAR (CLEAR); URINE BILIRUBIN NEG (NEG); URINE COLOR YELLOW; URINE NITRITE NEG (NEG); URINE PH 6.5 (4.5-7.5); URINE SPECIFIC GRAVITY 1.009 (1.000-1.030); UROBILINOGEN NEG (NEG)
[2017-05-07 19:03] LABS: MANUAL MICROSCOPIC REQUIRED? NO; REVIEW REQ? NO
== END | disposition home or self-care (01) ==
LOC: C.LAB 17:51
PROVIDERS: ATTEND Physician Assistant Medical
DX: R39.9 Unspecified symptoms and signs involving the genitourinary system (principal)

== ENCOUNTER 2017-05-18 20:55 | Emergency (ER) | payer BC, OTHER ==
[~2017-05-18] VITALS: Ht 160 cm; Wt 70.5 kg
[~2017-05-18 20:55] MED LIST changes: -CLIN2CRE PV
[2017-05-18 21:05] VITALS: TEMP 36.6; Ht 160 cm; Wt 70.5 kg
[2017-05-18] MEDS ORDERED: CLIN2CRE PV (21:24)
[2017-05-18 22:06] LABS: URINE APPEARANCE CLEAR (CLEAR); URINE BILIRUBIN NEG (NEG); URINE COLOR YELLOW; URINE NITRITE NEG (NEG); URINE PH 6.5 (4.5-7.5); URINE SPECIFIC GRAVITY 1.005 (1.000-1.030); UROBILINOGEN NEG (NEG); ZZUR CULT IF INDIC CLEAN CATCH NO
[2017-05-18 22:18] LABS: ALT/SGPT 20 U/L (12-78); BLOOD UREA NITROGEN 6 mg/dl (7-18); BUN/CREATININE RATIO 10.2 (10-20); CALCIUM 8.6 mg/dl (8.5-10.1); CARBON DIOXIDE 27 mmol/L (21-32); CHLORIDE 106 mmol/L (98-107); CREATININE 0.54 mg/dl (0.60-1.20); GLUCOSE 78 mg/dl (70-99); POTASSIUM 3.5 mmol/L (3.5-5.1); SODIUM 137 mmol/L (136-145)
[2017-05-18 22:21] LABS: ALB/GLOB RATIO 1.1 (0.9-2); ALKALINE PHOSPHATASE 50 U/L (45-117); AST/SGOT 12 U/L (15-37)
[2017-05-18 22:24] LABS: BASO % 0.2 %; BASO ABS # 0.02 K/uL (0-0.2); COMPLETE YES; EOS % 0.8 %; HEMATOCRIT 35.9 % (37-47); IG% 0.2 %; LYMPH % 24.4 %; LYMPH ABS # 2.43 K/uL (1.2-3.4); MEAN CELL VOLUME 84.5 fL (80-100); MEAN CORPUSCULAR HEMOGLOBIN 29.4 pg (25-34); MEAN CORPUSCULAR HGB CONC 34.8 g/dl (32-36); MEAN PLATELET VOLUME 10.5 fL (7.4-10.4); MONO % 6.3 %; NEUT % 68.1 %; PLATELET COUNT 199 K/uL (130-400); RED BLOOD COUNT 4.25 M/uL (4.2-5.4); WHITE BLOOD COUNT 9.96 K/uL (4.8-10.8)
[2017-05-18 22:32] LABS: MANUAL MICROSCOPIC REQUIRED? NO; REVIEW REQ? NO
--- NOTE | 2017-05-18 22:44 | DIAGNOSTIC IMAGING REPORT ---
LIMITED FIRST TRIMESTER OBSTETRICAL ULTRASOUND CLINICAL HISTORY: . Vaginal bleeding. COMPARISON STUDY: 05/02/2017 FINDINGS: A single live intrauterine gestation was visualized. The maternal cervix was closed and measured 3.1 cm The crown-rump length was 28 mm corresponding to an estimated postmenstrual age of 9 weeks and 4 days. The heart rate is 165. The maternal left ovary was unremarkable. The maternal right ovary was nonvisualized. There is a tiny subchorionic hematoma. IMPRESSION: 1. Single live intrauterine gestation. The estimated postmenstrual age is 9 weeks and 4 days 2. Tiny right-sided subchorionic hematoma Electronically signed by: Jung Salazar M.D. 05/18/2017 10:42 PM Dictated Date/Time: 05/18/2017 10:40 PM
[2017-05-18 23:03] VITALS: BP 113/69; PULSE 77; O2SAT 100
--- NOTE | 2017-05-19 03:32 | EMERGENCY ROOM VISIT NOTE ---
History First contact with patient: 21:33 Chief Complaint: VAGINAL BLEEDING Stated Complaint: 10 WKS ,BLEEDING History of Present Illness The patient is a 22 year old female who presents to the Emergency Room with complaints of vaginal bleeding for the past few hours. The patient is 10 weeks based on dates. She has a known subchorionic hematoma that has been followed by [employer] COURT JUDGE. She states her last ultrasound was 5 days ago, however she is unsure of the results. The patient has not had fever or chills. No chest pain, chest tightness, or shortness of breath. She does not have abdominal pain or cramping, and states that the vaginal blood was bright red. She did not soak through a pad with this. She has not taken anything [id number] for her symptoms. She rates her discomfort a 1/10. She is concerned about the . Review of Systems More than 10 systems were reviewed and otherwise negative with the exception of history of present illness. Past Medical/Surgical History Medical Problems: (1) Ear infection (2) Migraines Surgical Problems: (1) History of tonsillectomy (2) [place] teeth extracted Family History No pertinent family history Social History Smoking Status: Never Smoker Alcohol Use: none Marital Status: single Housing Status: lives with family Occupation Status: unemployed Current/Historical Medications Scheduled Clindamycin Phosphate Vaginal (Cleocin Vag), 1 APPL PV HS Vit W/ Ferrous Fumara (Pnv Plus Multivi), 1 TAB PO DAILY Scheduled PRN Penciclovir (Denavir), 1 APPLN TOP UD PRN for Cold Sore(s) Physical Exam Vital Signs Date Time Temp Pulse Resp B/P (MAP) Pulse Ox O2 Delivery O2 Flow Rate FiO2 05/18/17 23:03 77 20 113/69 100 Room Air 05/18/17 21:05 36.6 78 18 111/75 100 Room Air Pain Rating (0-10): 0 Physical Exam VITALS: Vitals are noted on the nurse's note and reviewed by myself. Vital signs stable. GENERAL: Well-developed, well-nourished, white female, who is in no acute distress and resting comfortably. Patient is cooperative with the examination. HEART: Regular rate and rhythm without murmurs gallops or rubs. LUNGS: Clear to auscultation bilaterally without wheezes, rales or rhonchi. No retractions or accessory muscle use. ABDOMEN: Positive normal bowel sounds x 4. Soft, nontender, without masses or organomegaly. No guarding or rebound tenderness. No CVA tenderness. MUSCULOSKELETAL: No muscle atrophy, erythema, or edema noted. Full range of motion without joint tenderness in all extremities. Medical Decision & Procedures ER Provider Diagnostic Interpretation: LIMITED FIRST TRIMESTER OBSTETRICAL ULTRASOUND CLINICAL HISTORY: . Vaginal bleeding. COMPARISON STUDY: 05/02/2017 FINDINGS: A single live intrauterine gestation was visualized. The maternal cervix was closed and measured 3.1 cm The crown-rump length was 28 mm corresponding to an estimated postmenstrual age of 9 weeks and 4 days. The heart rate is 165. The maternal left ovary was unremarkable. The maternal right ovary was nonvisualized. There is a tiny subchorionic hematoma. IMPRESSION: 1. Single live intrauterine gestation. The estimated postmenstrual age is 9 weeks and 4 days 2. Tiny right-sided subchorionic hematoma Laboratory Results 05/18/17 21:50 Red Blood Count 4.25, Mean Corpuscular Volume 84.5, Mean Corpuscular Hemoglobin 29.4, Mean Corpuscular Hemoglobin Concent 34.8, Mean Platelet Volume 10.5, Neutrophils (%) (Auto) 68.1, Lymphocytes (%) (Auto) 24.4, Monocytes (%) (Auto) 6.3, Eosinophils (%) (Auto) 0.8, Basophils (%) (Auto) 0.2, Neutrophils # (Auto) 6.78, Lymphocytes # (Auto) 2.43, Monocytes # (Auto) 0.63, Eosinophils # (Auto) 0.08, Basophils # (Auto) 0.02 05/18/17 21:50 Test 05/18/17 21:50 White Blood Count 9.96 K/uL (4.8-10.8) Red Blood Count 4.25 M/uL (4.2-5.4) Hemoglobin 12.5 g/dL (12.0-16.0) Hematocrit 35.9 % (37-47) Mean Corpuscular Volume 84.5 fL (80-100) Mean Corpuscular Hemoglobin 29.4 pg (25-34) Mean Corpuscular Hemoglobin Concent 34.8 g/dl (32-36) Platelet Count 199 K/uL (130-400) Mean Platelet Volume 10.5 fL (7.4-10.4) Neutrophils (%) (Auto) 68.1 % Lymphocytes (%) (Auto) 24.4 % Monocytes (%) (Auto) 6.3 % Eosinophils (%) (Auto) 0.8 % Basophils (%) (Auto) 0.2 % Neutrophils # (Auto) 6.78 K/uL (1.4-6.5) Lymphocytes # (Auto) 2.43 K/uL (1.2-3.4) Monocytes # (Auto) 0.63 K/uL (0.11-0.59) Eosinophils # (Auto) 0.08 K/uL (0-0.5) Basophils # (Auto) 0.02 K/uL (0-0.2) RDW Standard Deviation 39.8 fL (36.4-46.3) RDW Coefficient of Variation 13.0 % (11.5-14.5) Immature Granulocyte % (Auto) 0.2 % Immature Granulocyte # (Auto) 0.02 K/uL (0.00-0.02) Urine Color YELLOW Urine Appearance CLEAR (CLEAR) Urine pH 6.5 (4.5-7.5) Urine Specific [place] 1.005 (1.000-1.030) Urine Protein NEG (NEG) Urine Glucose (UA) NEG (NEG) Urine Ketones NEG (NEG) Urine Occult Blood NEG (NEG) Urine Nitrite NEG (NEG) Urine Bilirubin NEG (NEG) Urine Urobilinogen NEG (NEG) Urine Leukocyte Esterase NEG (NEG) Anion Gap 4.0 mmol/L (3-11) Est Creatinine Clear Calc Drug Dose 152.5 ml/min Estimated GFR () > 150.0 Estimated GFR (Non- 133.0 BUN/Creatinine Ratio 10.2 (10-20) Calcium Level 8.6 mg/dl (8.5-10.1) Total Bilirubin 0.2 mg/dl (0.2-1) Aspartate Amino Transf (AST/SGOT) 12 U/L (15-37) Alanine Aminotransferase (ALT/SGPT) 20 U/L (12-78) Alkaline Phosphatase 50 U/L (45-117) Total Protein 6.9 gm/dl (6.4-8.2) Albumin 3.6 gm/dl (3.4-5.0) Globulin 3.3 gm/dl (2.5-4.0) Albumin/Globulin Ratio 1.1 (0.9-2) Human Chorionic Gonadotropin, Quant 206672 mIU/mL ED Course Physical exam and history were performed. Nursing notes, EMR, and Medication List were personally reviewed. Patient appears to have vaginal bleeding and . The patient has a known subchorionic bleed. She is concerned that she is miscarrying. The patient does not have significant tenderness on examination. IV access was established and labs were obtained. Ultrasound was performed. The patient's blood work does not show a significantly elevated white blood cell count. She is not anemic. Her hCG quantitative is within the expected limits. Ultrasound shows a viable intrauterine with a very small subchorionic bleed. The patient was monitored for several hours here in the emergency department. She did not have any worsening of her symptoms, and she did not have any persistent bleeding. She has had this once before in this and does not require Rhogam. The patient felt comfortable for discharge home as her symptoms had stopped. The patient will be given instructions to follow with her [employer] JUDGE, as she has been doing the past several weeks. She was otherwise certainly invited back to the ER with any new, worsening, or concerning symptoms. The chart was completed utilizing [employer] Speech Voice Recognition Software. Grammatical errors, random word insertions, pronoun errors, and incomplete sentences are an occasional consequence of this system due to software limitations, ambient noise, and hardware issues. Any formal questions or concerns about the content, text, or information contained within the body of this dictation should be directly addressed to the provider for clarification. . Medical Decision Differential diagnosis: Etiologies such as ectopic , dysfunction uterine bleeding, bleeding dyscrasia, trauma, infection, as well as others were entertained. Impression Primary Impression: Subchorionic hemorrhage in first trimester Departure Information Dispostion Home / Self-Care Condition GOOD Referrals Obinna Paige M.D. (PCP) Forms HOME CARE DOCUMENTATION FORM, IMPORTANT VISIT INFORMATION Patient Instructions My [facility] Additional Instructions You were seen and evaluated today on an emergency basis only. This is not a substitute for, or an effort to provide, complete comprehensive medical care. It is not possible to recognize and treat all injuries or illnesses in a single emergency department visit. For this reason it is recommended that you followup with your YOUTH COURT JUDGE by telephone to arrange a follow-up visit. Drink plenty of fluids and remain well hydrated. You are welcome to return to the emergency department anytime with new, worsening, or concerning symptoms. Problem Qualifiers Primary Impression: Subchorionic hemorrhage in first trimester Fetus number: single or unspecified fetus Qualified Codes: O41.8X10 - Other specified disorders of amniotic fluid and membranes, first trimester, not applicable or unspecified; O46.8X1 - Other antepartum hemorrhage, first trimester
== END 2017-05-18 23:17 | disposition home or self-care (01) ==
LOC: C.EDB 20:56
DX: O20.8 Other hemorrhage in early pregnancy (principal); Z3A.10 10 weeks gestation of pregnancy

== ENCOUNTER 2017-05-31 14:50 | Emergency (ER) | payer BC, OTHER ==
[~2017-05-31] VITALS: Ht 160 cm; Wt 69.9 kg
[~2017-05-31 14:50] MED LIST changes: +CLIN2CRE PV
[2017-05-31 14:54] VITALS: TEMP 36.7; Ht 160 cm; Wt 69.9 kg
--- NOTE | 2017-05-31 15:43 | EMERGENCY ROOM VISIT NOTE ---
History First contact with patient: 14:57 Chief Complaint: VAGINAL DISCHARGE Stated Complaint: BLEEDING DISCHARGE 11-12 WKS History of Present Illness The patient is a 22 year old female who presents to the Emergency Room with complaints of vaginal discharge. Patient is 12 weeks and has been having increased vaginal discharge for the past several weeks. Patient has been evaluated multiple times in this emergency department for concern of vaginal bleeding, which she states was due to a subchorionic hemorrhage that is now resolved. She states she is still having a clear to white discharge that "looks likes not" and occasionally has a pink or reddish brown coloring to it. Patient states that she had an increased amount of discharge after walking around at a fair yesterday. Patient spoke with her OB provider today who told her to keep her scheduled appointment with them. Patient states she decided to come to the ER because she is concerned she might be bleeding again and wants to know where the discharge is coming from. She denies fevers or chills, abdominal pain, back pain, dysuria or urinary frequency. She denies any spotting or blood flow, blood in the toilet with using the bathroom, or passing any clots. She is , and states she has had 2 miscarriages in the past. Review of Systems A complete 10 point review of systems was reviewed with the patient with pertinent positives and negatives as per history of present illness. All else were negative. Past Medical/Surgical History Medical Problems: (1) Ear infection (2) Migraines Surgical Problems: (1) History of tonsillectomy (2) [place] teeth extracted Family History No pertinent family history Social History Smoking Status: Former Smoker Alcohol Use: none Marital Status: single Housing Status: lives with family Occupation Status: unemployed Current/Historical Medications Scheduled Vit W/ Ferrous Fumara (Pnv Plus Multivi), 1 TAB PO DAILY Scheduled PRN Penciclovir (Denavir), 1 APPLN TOP UD PRN for Cold Sore(s) Physical Exam Vital Signs Date Time Temp Pulse Resp B/P (MAP) Pulse Ox O2 Delivery O2 Flow Rate FiO2 05/31/17 16:51 66 16 107/75 98 05/31/17 14:54 36.7 96 18 106/78 99 Room Air Physical Exam CONSTITUTIONAL: No acute distress. Well appearing and well nourished. Alert and oriented X 4 with normal affect. HEENT: Normocephalic, atraumatic. Pupils equal, round and reactive to light, EOMI. TMs normal. Pharynx normal. Moist mucous membranes. NECK: Supple, full active range of motion without discomfort. RESPIRATORY: Clear to auscultation bilaterally with no wheezing, crackles, rhonchi or stridor. Equal expansion bilaterally. CARDIOVASCULAR: Regular rate and rhythm with no murmurs, rubs or gallops. Normal peripheral perfusion. No edema. GASTROINTESTINAL: Soft, nontender, nondistended. Bowel sounds present in all quadrants. GENITOURINARY: Pelvic exam reveals a healthy-appearing cervix, cervical os is closed, small amount of clear/white discharge noted. No foul odors, discharge does not appear consistent with infection. No cervical motion tenderness, no adnexal tenderness. MUSCULOSKELETAL: Full range of motion of all joints without discomfort. INTEGUMENTARY: No rash or other significant dermatologic conditions noted. NEUROLOGIC: Cranial nerves II-XII grossly intact. No focal neurologic deficits noted. Medical Decision & Procedures Laboratory Results Test 05/31/17 00:00 Urine Color DK YELLOW Urine Appearance CLEAR (CLEAR) Urine pH 7.0 (4.5-7.5) Urine Specific [place] 1.013 (1.000-1.030) Urine Protein NEG (NEG) Urine Glucose (UA) NEG (NEG) Urine Ketones NEG (NEG) Urine Occult Blood NEG (NEG) Urine Nitrite NEG (NEG) Urine Bilirubin NEG (NEG) Urine Urobilinogen NEG (NEG) Urine Leukocyte Esterase NEG (NEG) Medical Decision CC: Patient presenting with complaint of vaginal discharge in early Interpretation of Labs: No UTI. Urine culture pending Differential Diagnosis: Includes, but not limited to vaginal bleeding, threatened miscarriage, UTI, STI, normal discharge of , among others. Medication Reconciliation: I attest that I have personally reviewed the patient' s current medication list. Vital signs review: I reviewed the patient's vital signs and interpret them as follows: T: Afebrile; BP: Normotensive; HR: Within normal limits; RR: Within normal limits; Pulse Ox: Within normal limits on room air. Blood pressure screening: The patient was found to have normal blood pressure on screening and does not require follow-up for repeat blood pressure check. Summary: Patient was evaluated at bedside, history and physical exam performed. Patient is alert and in no acute distress, resting comfortably in stretcher. Abdomen is soft and nontender to palpation. Pelvic exam performed which reveals a closed cervix and a small amount of clear/white discharge that appears normal and consistent with . Patient denied any concerns for sexually transmitted infections and declined testing for this. No active bleeding or bloody discharge noted. No clots. Cervix appears healthy with no cervical motion tenderness or tenderness on exam. Bedside transabdominal ultrasound was done to assess the fetus, which is consistent with dates by crown-rump length at approximately 12 weeks, active movement noted on exam, heart rate 158 bpm. Urinalysis was assessed for possible UTI, this is negative and culture is pending. Patient was updated on all results and reassured that her discharge is most likely normal. Patient was instructed to continue following closely with her OB provider, and given return precautions should her symptoms worsen, she verbalized understanding. Patient discussed with Dr. Toussaint, who agrees with my assessment and plan. Patient was discharged home in stable condition and ambulatory. Impression Primary Impression: Vaginal discharge Departure Information Dispostion Home / Self-Care Condition GOOD Referrals No Doctor, Assigned (PCP) Patient Instructions Bleeding Early Preg, My [facility] Additional Instructions Your vaginal discharge today appears consistent with discharge of normal . Your cervix is closed and there is no evidence of active bleeding. You should keep your scheduled follow-up with your OB as planned. Please return to the ER for any worsening symptoms, including severe abdominal or back pain, heavy vaginal bleeding (soaking through more than 1 pad per hour) , dizziness or passing out, fevers/chills/feeling ill, or any other concerns.
[2017-05-31 15:56] LABS: URINE APPEARANCE CLEAR (CLEAR); URINE BILIRUBIN NEG (NEG); URINE COLOR DK YELLOW; URINE NITRITE NEG (NEG); URINE SPECIFIC GRAVITY 1.013 (1.000-1.030); UROBILINOGEN NEG (NEG)
[2017-05-31 15:57] LABS: MANUAL MICROSCOPIC REQUIRED? NO; REVIEW REQ? NO
[2017-05-31 16:51] VITALS: BP 107/75; PULSE 66; O2SAT 98
== END 2017-05-31 16:51 | disposition home or self-care (01) ==
LOC: C.EDB 14:52 → C.EDC 16:51
DX: N89.8 Other specified noninflammatory disorders of vagina (principal); Z33.1 Pregnant state, incidental; Z87.891 Personal history of nicotine dependence

== ENCOUNTER 2017-06-08 22:47 | Emergency (ER) | payer BC, OTHER ==
[~2017-06-08] VITALS: Ht 160 cm; Wt 70.9 kg
[~2017-06-08 22:47] MED LIST changes: -CLIN2CRE PV
[2017-06-08 22:50] VITALS: TEMP 36.7; Ht 160 cm; Wt 70.9 kg
[2017-06-08 23:38] LABS: URINE APPEARANCE CLEAR (CLEAR); URINE BILIRUBIN NEG (NEG); URINE COLOR YELLOW; URINE NITRITE NEG (NEG); UROBILINOGEN NEG (NEG)
[2017-06-08 23:55] LABS: MANUAL MICROSCOPIC REQUIRED? NO; REVIEW REQ? NO
--- NOTE | 2017-06-09 00:19 | EMERGENCY ROOM VISIT NOTE ---
History Report prepared by Glynn: Sera Leonardo Under the Supervision of: Micki ArguetaO. First contact with patient: 23:00 Chief Complaint: PELVIC PAIN Stated Complaint: TIGHTNESS IN LOWER ABDOMEN, 13WKS History of Present Illness The patient is a 22 year old female who presents to the Emergency Room with complaints of constant pelvic pain throughout the day today. The patient is about 13 weeks . She is /A2. Throughout the day today she has been experiencing pelvic cramping and "tightness." She rates his discomfort as a 3/ 10 in severity. She states that her symptoms remind her of the [place] contractions she experienced with her previous . The patient denies any abnormal vaginal discharge or bleeding. She denies any urinary symptoms. She denies any previous abdominal surgeries. The patient called her ob-e learning specialist a few hours ago and states that they "were not too concerned" but advised her to come to the ED with worsening symptoms. Source of History: patient Onset: today Position: pelvis Symptom Intensity: 3/10 Quality: cramping, other (tightness) Timing: constant Modifying Factors (Worsening): other () Associated Symptoms: No urinary symptoms Note: Pt denies any abnormal vaginal discharge or bleeding. Review of Systems See HPI for pertinent positives & negatives. A total of 10 systems reviewed and were otherwise negative. Past Medical & Surgical Medical Problems: (1) Ear infection (2) Migraines Surgical Problems: (1) History of tonsillectomy (2) [place] teeth extracted Family History No pertinent family history Social History Smoking Status: Never Smoker Alcohol Use: none Marital Status: single Housing Status: lives with family Occupation Status: unemployed Current/Historical Medications Scheduled Vit W/ Ferrous Fumara (Pnv Plus Multivi), 1 TAB PO DAILY Scheduled PRN Penciclovir (Denavir), 1 APPLN TOP UD PRN for Cold Sore(s) Allergies Coded Allergies: Diphenhydramine (Verified Allergy, Intermediate, ITCHY RASH, 06/08/17) Physical Exam Vital Signs Date Time Temp Pulse Resp B/P (MAP) Pulse Ox O2 Delivery O2 Flow Rate FiO2 06/09/17 00:20 71 16 114/62 98 06/08/17 22:50 36.7 79 16 123/78 99 Room Air Physical Exam GENERAL: Patient is awake, alert, and in no acute distress. Patient is resting comfortably and showing no signs of anxiety EYES: The conjunctivae are clear. The pupils are round and reactive. EARS, NOSE, MOUTH AND THROAT: The nose is without any evidence of any deformity. Mucous membranes are moist tongue is midline NECK: The neck is nontender and supple. RESPIRATORY: Normal respiratory effort is noted there is no evidence of wheezing rhonchi or rales CARDIOVASCULAR: Regular rate and rhythm noted there no murmurs rubs or gallops normal S1 normal S2 GASTROINTESTINAL: The abdomen is soft. Bowel sounds are present in all quadrants. Abdomen is nontender MUSCULOSKELETAL/EXTREMITIES: There is no evidence of gross deformity full range of motion is noted in the hips and shoulders SKIN: There is no obvious evidence of any rash. There are no petechiae, pallor or cyanosis noted. NEUROLOGIC: Patient is awake alert and oriented x3 strength is symmetric patellar reflexes are 2+ bilaterally Medical Decision & Procedures Laboratory Results Test 06/08/17 23:20 Urine Color YELLOW Urine Appearance CLEAR (CLEAR) Urine pH 6.0 (4.5-7.5) Urine Specific [place] 1.020 (1.000-1.030) Urine Protein NEG (NEG) Urine Glucose (UA) NEG (NEG) Urine Ketones NEG (NEG) Urine Occult Blood NEG (NEG) Urine Nitrite NEG (NEG) Urine Bilirubin NEG (NEG) Urine Urobilinogen NEG (NEG) Urine Leukocyte Esterase NEG (NEG) Laboratory results per my review. Procedure Bedside FAST US: There is a single IUP noted. HR was heard by US. Good movement was noted. ED Course 2300: The patient was evaluated in room A12B. A complete history and physical examination were performed. At this time I performed a bedside FAST US. Please see above for further details. 0000: I reassessed the patient at this time. She is feeling better and resting comfortably. I discussed the results and treatment plan with the patient. I answered all pertaining questions that she had. She expressed understanding and verbalized agreement. The patient will be discharged home. Medical Decision Differential diagnosis: Etiologies such as ectopic , dysfunction uterine bleeding, bleeding dyscrasia, trauma, infection, as well as others were entertained. Nursing notes reviewed. The patient is a 22-year-old female who presented to the emergency department for evaluation of pelvic pain and cramping. The patient has a first trimester single live intrauterine gestation noted on previous ultrasound as well as bedside ultrasound performed by myself today. The patient's urinalysis did not show signs of urinary tract infection. The patient had no vaginal bleeding at her abdominal exam was not consistent with an acute surgical abdomen. She was encouraged to rest and avoid any strenuous activity. She was encouraged to keep herself well-hydrated. He was also encouraged to follow-up with her CHEMICAL MANAGER physician as soon as possible return to emergency department immediately if symptoms change worsen or the need arises. Medication Reconcilliation Current Medication List: was personally reviewed by me Blood Pressure Screening Patient's blood pressure: Normal blood pressure Impression Primary Impression: Pelvic pain affecting in first trimester, antepartum Scribe Attestation The scribe's documentation has been prepared under my direction and personally reviewed by me in its entirety. I confirm that the note above accurately reflects all work, treatment, procedures, and medical decision making performed by me. Departure Information Dispostion Home / Self-Care Referrals No Doctor, Assigned (PCP) Forms HOME CARE DOCUMENTATION FORM, IMPORTANT VISIT INFORMATION, WORK / SCHOOL INSTRUCTIONS Patient Instructions My [facility] Additional Instructions Rest and avoid any strenuous activity. Call your CHEMICAL MANAGER physician to schedule a follow-up appointment. Continue using Tylenol as directed for pain.
[2017-06-09 00:20] VITALS: BP 114/62; PULSE 71; O2SAT 98
== END 2017-06-09 00:22 | disposition home or self-care (01) ==
LOC: C.EDB 22:48 → C.EDA 06-09 00:22
DX: O26.92 Pregnancy related conditions, unspecified, second trimester (principal); R10.2 Pelvic and perineal pain; Z86.19 Personal history of other infectious and parasitic diseases; Z98.890 Other specified postprocedural states; Z88.8 Allergy status to other drugs, medicaments and biological substances

== ENCOUNTER 2017-07-09 17:35 | Outpatient (CLI) | payer BC, OTHER ==
[~2017-07-09] VITALS: Ht 160 cm; Wt 74.8 kg
--- NOTE | 2017-07-12 13:36 | EDITING REQUIRED CODING QUERY ---
DIAGNOSIS NEEDED To promote full compliance with coding requirements relating to patient care, physician participation is requested in all cases of suture winder hand uncertainty. Please assist us with the question(s) below: Coding Question: The patient received care in labor and delivery on 07/09/17 as noted within the record. Please document the diagnosis that is being addressed by the medication/treatment. Provider Response: DIAGNOSIS: Round ligament pain WEEKS OF GESTATION: 17 weeks Thank you for your assistance, Annelise Casey - Meter Tester Primary
== END 2017-07-09 19:00 | disposition home or self-care (01) ==
LOC: C.LD 17:35 → C.OPB 17:35
PROVIDERS: ATTEND Obstetrics & Gynecology
DX: O26.892 Other specified pregnancy related conditions, second trimester (principal); Z3A.17 17 weeks gestation of pregnancy

== ENCOUNTER 2017-08-23 16:40 | Emergency (ER) | payer BC, OTHER ==
[~2017-08-23] VITALS: Ht 160 cm; Wt 78.0 kg
[~2017-08-23 16:40] MED LIST changes: +PENC1CRE33 TOP; -PENC1CRE4 TOP
[2017-08-23 16:49] VITALS: TEMP 36.6; Ht 160 cm; Wt 78.0 kg
[2017-08-23] MEDS ORDERED: POLY335019 PO (17:05)
[2017-08-23] MEDS ORDERED: DOCU100C31 PO (17:05)
[2017-08-23] MEDS ORDERED: CLOT1CRE3 PV (17:44)
[2017-08-23] MEDS ORDERED: CEFTRIAXONE SOD 350MG/ML 1 GM VIAL IM ONE (17:44)
--- NOTE | 2017-08-23 17:44 | EMERGENCY ROOM VISIT NOTE ---
History First contact with patient: 17:03 Chief Complaint: STD FEMALE Stated Complaint: STD TESTING,REDNESS/IRRITATION,23W 4 DAY PREG History of Present Illness The patient is a 22 year old female who presents to the Emergency Room with complaints of concern for a sexually transmitted disease. The patient is currently 23 weeks . She follows with [facility] ENTRY ENGINEER. She states that her partner recently told her that he had sexual intercourse with another woman. The patient suspects that this woman may have chlamydia. The patient reports that over the past several days, she has developed itchiness, redness and irritation in her vagina. She denies any unusual discharge. She denies any abdominal pain or vaginal bleeding. She denies any urinary symptoms. Review of Systems A complete 10 point review of systems was reviewed with the patient with pertinent positives and negatives as per history of present illness. All else were negative. Past Medical/Surgical History Medical Problems: (1) Ear infection (2) Migraines Surgical Problems: (1) History of tonsillectomy (2) [place] teeth extracted Family History No pertinent family history Social History Smoking Status: Former Smoker Alcohol Use: none Marital Status: single Housing Status: lives with family Occupation Status: unemployed Current/Historical Medications Scheduled Clotrimazole Vaginal (Clotrimazole), 1 APPL PV HS Docusate Sodium (Docusate Sodium), 100 MG PO QAM Vit W/ Ferrous Fumara (Pnv Plus Multivi), 1 TAB PO DAILY Scheduled PRN Penciclovir (Denavir), 1 APPLN TOP UD PRN for Cold Sore(s) Polyethylene Glycol 3350 (Miralax), 17 GM PO Q2D PRN for PRN Physical Exam Vital Signs Date Time Temp Pulse Resp B/P (MAP) Pulse Ox O2 Delivery O2 Flow Rate FiO2 08/23/17 17:59 85 15 121/61 100 08/23/17 16:49 36.6 85 20 116/77 100 Room Air Physical Exam VITALS: Vitals are noted on the nurse's note and reviewed by myself. Vital signs stable. GENERAL: This is a 22-year-old female, in no acute distress, nondiaphoretic, well-developed well-nourished. HEART: Regular rate and rhythm without murmurs gallops or rubs. LUNGS: Clear to auscultation bilaterally without wheezes, rales or rhonchi. ABDOMEN: Positive bowel sounds x 4. Soft, nontender to palpation. PELVIC: External genitalia unremarkable. There is a small amount of white vaginal discharge within the vault. No evidence of cervicitis. NEURO: Patient was alert and oriented to person place and time. Medical Decision & Procedures Laboratory Results Test 08/23/17 17:25 Date/Time Source Procedure Growth Status 08/23/17 17:25 Vaginal Swab Trichomonas Preparation - Final Complete Medications Administered Medications (Trade) Dose Ordered Sig/Ry Route Start Time Stop Time Status Last Admin Dose Admin Azithromycin (Zithromax Tab) 1,000 mg NOW ONCE PO 08/23/17 17:45 08/23/17 17:46 DC 08/23/17 17:49 1,000 MG Ceftriaxone Sodium (Rocephin Im) 997.5 mg STK-MED ONCE IM 08/23/17 17:44 08/23/17 17:45 DC 08/23/17 17:50 250 MG Medical Decision Differential diagnosis includes chlamydia, gonorrhea, bacterial vaginosis, vaginal candidiasis, among others. The patient was evaluated and pelvic exam was performed as above. There is no evidence of cervicitis on exam. Cultures were obtained and are pending. Urine dipstick was evaluated by myself and did not show any bacteria or signs of UTI. I discussed options of care with the patient. She is very concerned about possible sexually transmitted infection and we did choose to give her the treatment for chlamydia and gonorrhea here. She was given 250 mg Rocephin IM and 1 g Zithromax by mouth. Her discharge does look slightly suspicious for yeast and I did prescribe her clotrimazole to use at home. All of these medications are safe in and patient was encouraged to follow-up with her ENTRY ENGINEER. She will return here for any worsening or new/concerning symptoms. She verbalized understanding of my assessment and treatment plan and was discharged home in good condition. Medication Reconcilliation Current Medication List: was personally reviewed by me Blood Pressure Screening Patient's blood pressure: Normal blood pressure Impression Primary Impression: Vaginal discharge Departure Information Dispostion Home / Self-Care Condition GOOD Prescriptions Clotrimazole Vaginal (CLOTRIMAZOLE) 1 % Cre 1 APPL PV HS for 7 Days, #7 APPL Prov: Ysabel Urban ., MOE 08/23/17 Referrals Obinna Paige M.D. (PCP) Patient Instructions My [facility] Additional Instructions Use the clotrimazole as prescribed. Follow-up with [facility] ENTRY ENGINEER for a recheck. Call for appointment. Return here for any worsening symptoms, abdominal pain, vaginal bleeding, or any other new/concerning symptoms.
[2017-08-23] MEDS ORDERED: AZITHROMYCIN 250 MG TAB PO ONE (17:45)
[2017-08-23] MEDS ORDERED: CEFTRIAXONE SOD INJ 250 MG/ML VIAL IM ONE (17:45)
[2017-08-23 17:59] VITALS: BP 121/61; PULSE 85; O2SAT 100
[2017-08-27 02:18] LABS: CHLAMYDIA TRACH RNA*** NOT DETECTED (NOT DETECTED); GC (NEIS GONORRHOEAE)RNA** NOT DETECTED (NOT DETECTED)
== END 2017-08-23 18:00 | disposition home or self-care (01) ==
LOC: C.EDB 16:41 → C.EDC 18:00
DX: O26.892 Other specified pregnancy related conditions, second trimester (principal); N89.8 Other specified noninflammatory disorders of vagina; Z3A.23 23 weeks gestation of pregnancy; Z87.891 Personal history of nicotine dependence; Z98.818 Other dental procedure status; Z90.89 Acquired absence of other organs

== ENCOUNTER → 2017-09-04 | Outpatient (CLI) | payer BC, OTHER ==
[~2017-09-04] MED LIST changes: +CLOT1CRE3 PV; +DOCU100C31 PO; +POLY335019 PO
== END | disposition home or self-care (01) ==
LOC: C.LAB 12:48
PROVIDERS: ATTEND Physician Assistant Medical
DX: Z00.00 Encounter for general adult medical examination without abnormal findings (principal)

== ENCOUNTER → 2017-09-04 | Outpatient (CLI) | payer BC, OTHER ==
[2017-09-04 17:14] LABS: BENZODIAZEPINE, URINE NEG (NEG); COCAINE,URINE NEG (NEG); PHENCYCLIDINE, URINE NEG (NEG)
[2017-09-04 17:19] LABS: URINE APPEARANCE TURBID (CLEAR); URINE BILIRUBIN NEG (NEG); URINE COLOR YELLOW; URINE NITRITE NEG (NEG); URINE PH 7.5 (4.5-7.5); URINE SPECIFIC GRAVITY 1.018 (1.000-1.030); UROBILINOGEN NEG (NEG); ZZUR CULT IF INDIC CLEAN CATCH NO
[2017-09-04 17:22] LABS: REVIEW REQ? NO
[2017-09-04 17:23] LABS: MANUAL MICROSCOPIC REQUIRED? NO
== END | disposition home or self-care (01) ==
LOC: C.LABBFT 15:26
PROVIDERS: ATTEND Physician Assistant Medical
DX: Z00.00 Encounter for general adult medical examination without abnormal findings (principal); R39.9 Unspecified symptoms and signs involving the genitourinary system

== ENCOUNTER 2017-09-28 16:58 | Outpatient (CLI) | payer BC, OTHER ==
[2017-09-28] MEDS ORDERED: ASPI325T39 PO (17:50)
== END 2017-09-28 17:51 | disposition home or self-care (01) ==
LOC: C.LD 16:58 → C.OPB 16:58
PROVIDERS: ATTEND Obstetrics & Gynecology
DX: O36.8130 Decreased fetal movements, third trimester, not applicable or unspecified (principal); Z3A.29 29 weeks gestation of pregnancy

== ENCOUNTER 2017-11-30 20:35 | Outpatient (CLI) | payer BC, OTHER ==
[~2017-11-30] VITALS: Ht 160 cm; Wt 84.0 kg
[~2017-11-30 20:35] MED LIST changes: +ASPI325T39 PO; -CLOT1CRE3 PV; -DOCU100C31 PO; -PENC1CRE33 TOP
[2017-11-30 21:53] VITALS: Ht 160 cm; Wt 84.0 kg
--- NOTE | 2017-12-06 10:47 | EDITING REQUIRED CODING QUERY ---
DIAGNOSIS NEEDED To promote full compliance with coding requirements relating to patient care, physician participation is requested in all cases of financial administrative assistant uncertainty. Please assist us with the question(s) below: Coding Question: The patient received care in labor and delivery on 11/30/17 as noted within the record. Please document the diagnosis that is being addressed by the medication/treatment. Provider Response: DIAGNOSIS: Labor check WEEKS GESTATION: 37 weeks Thank you for your assistance, Annelise Casey - Harnessmaker
[2017-12-06] MEDS ORDERED: MTR600X PO (10:50)
== END 2017-11-30 23:01 | disposition home or self-care (01) ==
LOC: C.OPB 20:35 → C.LD 20:35 → C.OPB 23:01
PROVIDERS: ATTEND Obstetrics & Gynecology
DX: Z34.93 Encounter for supervision of normal pregnancy, unspecified, third trimester (principal); Z3A.37 37 weeks gestation of pregnancy

== ENCOUNTER 2017-12-03 23:23 | Inpatient (IN) | payer BC, OTHER ==
[~2017-12-03] VITALS: Ht 160 cm; Wt 82.0 kg
[2017-12-03] MEDS ORDERED: LACTATED RINGER'S 1000ML 1,000 ML IV SCH (23:46)
[2017-12-03] MEDS ORDERED: LACTATED RINGER'S 1000ML 1,000 ML IV PRN (23:46)
[2017-12-04] MEDS ORDERED: PENICILLIN G POTASSIUM IV 6 MU in DEXTROSE 5% 250ML 250 ML IV ONE ×2
[2017-12-04] MEDS ORDERED: PENICILLIN G POTASSIUM IV 3 MU in DEXTROSE 5% 100ML 100 ML IV PRN ×2
[2017-12-04] MEDS ORDERED: FENTANYL CITRATE INJ 50 MCG/1 ML 2 ML VIAL ONE (00:16)
[2017-12-04] MEDS ORDERED: EpHEDrine SULFATE INJ 50 MG/ML AMP ONE (00:16)
[2017-12-04] MEDS ORDERED: BUPIVACAINE 0.25% 30 ML VIAL ONE (00:16)
[2017-12-04] MEDS ORDERED: FENTANYL 2MCG/ML ROPIV 1.25MG/ML 100ML BAG EPI ONE (00:16)
[2017-12-04 00:21] LABS: HEMATOCRIT 35.6 % (37-47); HEMOGLOBIN 12.5 g/dL (12.0-16.0); MEAN CELL VOLUME 86.2 fL (80-100); MEAN CORPUSCULAR HEMOGLOBIN 30.3 pg (25-34); MEAN CORPUSCULAR HGB CONC 35.1 g/dl (32-36); MEAN PLATELET VOLUME 9.9 fL (7.4-10.4); PLATELET COUNT 169 K/uL (130-400); RED CELL DISTRIBUTION WIDTH CV 13.8 % (11.5-14.5); RED CELL DISTRIBUTION WIDTH SD 43.1 fL (36.4-46.3); WHITE BLOOD COUNT 9.55 K/uL (4.8-10.8)
[2017-12-04] MEDS ORDERED: LACTATED RINGER'S 1000ML 500 ML IV PRN (01:14)
[2017-12-04] MEDS ORDERED: EpHEDrine SULFATE INJ 50 MG/ML AMP IV PRN (01:15)
[2017-12-04] MEDS ORDERED: FENTANYL 2MCG/ML ROPIV 1.25MG/ML 100ML BAG EPI PRN (01:15)
[2017-12-04] MEDS ORDERED: NALOXONE HCL INJ 0.4 MG/1 ML VIAL/CARP IV PRN (01:15)
[2017-12-04 01:26] VITALS: Ht 160 cm; Wt 82.0 kg
[2017-12-04] MEDS ORDERED: OXYTOCIN 30 UNITS/500ML NSS IV ONE (02:33)
[2017-12-04] MEDS ORDERED: LACTATED RINGER'S 1000ML 1,000 ML IV SCH (03:10)
[2017-12-04] MEDS ORDERED: SUPERCREAM 0.870 % 15GM JAR EXT PRN (03:15)
[2017-12-04] MEDS ORDERED: MEASLES, MUMPS & RUBELLA VIRUS VIAL SQ. ONE (03:15)
[2017-12-04] MEDS ORDERED: HYDROCORTISONE ACETATE 25 MG SUPP PR PRN (03:15)
[2017-12-04] MEDS ORDERED: MISOPROSTOL 200 MCG TAB PR SCH (03:15)
[2017-12-04] MEDS ORDERED: ACETAMINOPHEN 325 MG TAB PO PRN (03:15)
[2017-12-04] MEDS ORDERED: BENZOCAINE 20% AER SPR 82.5 GM CAN EXT PRN (03:15)
[2017-12-04] MEDS ORDERED: DIPHTHERIA/TETANUS/PERTUSSIS 0.5 ML SYR/VIAL IM. ONE (03:15)
[2017-12-04] MEDS ORDERED: LANOLIN OINT EXT PRN (03:15)
[2017-12-04] MEDS ORDERED: OXYTOCIN 30 UNITS/500ML NSS IV PRN (03:15)
[2017-12-04 06:00] VITALS: BP 108/59; PULSE 90; TEMP 36.9
[2017-12-04] MEDS: IBUPROFEN 600 MG TAB PO PRN ×3 (06:11→18:26)
[2017-12-04 07:00] VITALS: BP 112/74; PULSE 85; TEMP 36.9
--- NOTE | 2017-12-04 07:16 | Anesthesia Procedure Note ---
Anesthesia Epidural Removal Nt Date & Time Dec 04, 2017 at 07:16 Vital Signs Pain Intensity: 3.0 Vital Signs Past 12 Hours Date Time Temp Pulse Resp B/P (MAP) Pulse Ox O2 Delivery O2 Flow Rate FiO2 12/04/17 06:00 36.9 90 18 108/59 (75) Room Air 12/04/17 06:00 Room Air Notes Mental Status: alert / awake / arousable, participated in evaluation Nausea / Vomiting: adequately controlled Pain: adequately controlled Airway Patency, RR, SpO2: stable & adequate BP & HR: stable & adequate Hydration State: stable & adequate Neuraxial Anesthesia: was administered Anesthetic Complications: no major complications apparent, pt satisfied with anesthetic care Epidural: removed without complications, with tip intact
[2017-12-04] MEDS: DOCUSATE SODIUM 100 MG CAP PO SCH ×2 (08:00→20:02)
[2017-12-04] MEDS: PRENATAL VITAMIN TAB PO SCH (08:00)
[2017-12-04] MEDS: FERROUS SULFATE 325 MG TAB PO SCH (08:00)
--- NOTE | 2017-12-04 10:51 | DELIVERY SUMMARY ---
DATE OF OPERATION: 12/04/2017 TIME OF DELIVERY OF BABY: 02:48 a.m. TIME OF DELIVERY OF PLACENTA: 02:58 a.m. DETAILS OF DELIVERY: The patient was found to be fully dilated and desired to push. She pushed for only 2 times and delivered the head without difficulty. There was lopps of nuchal cord around the neck x2 which was reduced while delivering the shoulders with minimal traction and the baby was handed off to the mother where mouth and nose were suctioned. Cord was clamped x2 and cut after 1 minute delay. The cord blood was obtained. The vagina and perineum were checked for lacerations. There was a first degree right labial laceration which extended to right vaginal wall about 1 cm into the vagina. It was repaired with 2-0 Vicryl in a running fashion. Excellent hemostasis was achieved. There was a small 1st degree laceration on the left labia. It was repaired with [id number] stitches x1. Excellent hemostasis was achieved. The rest of the vagina and perineum were intact. Placenta was found to be in the vagina, delivered spontaneously intact and complete. Uterus was explored and found to be empty. Lower segment was cleared off all clots and debris. Fundus was firm. EBL was 300. Mom and baby tolerated the procedure well. Sponge, needle and instrument counts were correct x2. Baby was a viable female . Apgars 8/9. Weight was 3370 gr. No complications happened. The patient received penicillin for GBS and intrarectal Cytotec 800 mcg for history of hemorrhage. I attest to the content of the Intraoperative Record and any orders documented therein. Any exceptions are noted below. MTDD
[2017-12-04 12:30] VITALS: BP 114/73; PULSE 87; TEMP 36.8
[2017-12-04 15:50] VITALS: BP 116/74; PULSE 74; TEMP 36.8
[2017-12-04] MEDS: OXYCODONE/ACETAMINOPHEN 5-325 TAB PO PRN (18:21)
[2017-12-04 20:05] VITALS: BP 105/64; PULSE 86; TEMP 37; O2SAT 99
[2017-12-05 00:10] VITALS: BP 112/71; PULSE 81; TEMP 36.8
[2017-12-05] MEDS: IBUPROFEN 600 MG TAB PO PRN ×3 (00:33→22:41)
[2017-12-05] MEDS: OXYCODONE/ACETAMINOPHEN 5-325 TAB PO PRN ×2 (00:33→15:56)
[2017-12-05 07:03] LABS: HEMATOCRIT 31.6 % (37-47); HEMOGLOBIN 10.7 g/dL (12.0-16.0)
[2017-12-05 07:30] VITALS: BP 107/71; PULSE 75; TEMP 36.7
--- NOTE | 2017-12-05 08:11 | OB/GYN Progress Note ---
TWIST PACKER Progress Note Date of Service: Dec 05, 2017. Patient is seen and examined. She feels well, no complaints. Ambulating without dizziness Voiding without difficulty Tolerating regular diet with out N&V Bleeding is minimal No fever/ chills/ CP/ SOB/ N&V/ Leg pain Breast feeding without problems Discussed contraception, she likes to decide at 6 wks pp visit Date Time Temp Pulse Resp B/P (MAP) Pulse Ox O2 Delivery O2 Flow Rate FiO2 12/05/17 00:10 36.8 81 16 112/71 (85) Room Air 12/05/17 00:10 Room Air 12/04/17 20:05 37.0 86 20 105/64 (78) 99 Room Air 12/04/17 15:50 Room Air 12/04/17 15:50 36.8 74 16 116/74 (88) Room Air 12/04/17 12:30 Room Air 12/04/17 12:30 36.8 87 16 114/73 (87) Room Air Last 24 Hours Test 12/05/17 06:01 Hemoglobin 10.7 g/dL Hematocrit 31.6 % PE: General: Alert, orientedx3, NAD Abd: soft, NT, fundus firm, below Umbilicus Perineum intact, Lochia rubra minimal Ext; NT, no edema AP: 22 yo s/p , ppd# 1, GBS+ VSS Afebrile doing well Continue routine care All questions were answered D/C home tomorrow
[2017-12-05] MEDS: FERROUS SULFATE 325 MG TAB PO SCH (08:27)
[2017-12-05] MEDS: DOCUSATE SODIUM 100 MG CAP PO SCH ×2 (08:27→20:37)
[2017-12-05] MEDS: PRENATAL VITAMIN TAB PO SCH (08:27)
[2017-12-05 17:30] VITALS: BP 101/65; PULSE 76; TEMP 36.8; O2SAT 96
[2017-12-05] MEDS ORDERED: BISACODYL 5 MG TABEC PO SCH (20:00)
[2017-12-05 23:45] VITALS: BP 118/74; PULSE 70; TEMP 36.7
[2017-12-06] MEDS: IBUPROFEN 600 MG TAB PO PRN (04:57)
[2017-12-06] MEDS ORDERED: BISACODYL 10 MG SUPP PR PRN (07:00)
[2017-12-06 07:01] LABS: HEMATOCRIT 34.6 % (37-47); HEMOGLOBIN 11.8 g/dL (12.0-16.0); MEAN CORPUSCULAR HGB CONC 34.1 g/dl (32-36); MEAN PLATELET VOLUME 10.2 fL (7.4-10.4); PLATELET COUNT 171 K/uL (130-400); RED CELL DISTRIBUTION WIDTH CV 13.9 % (11.5-14.5); WHITE BLOOD COUNT 11.64 K/uL (4.8-10.8)
[2017-12-06] MEDS: PRENATAL VITAMIN TAB PO SCH (07:26)
[2017-12-06] MEDS: FERROUS SULFATE 325 MG TAB PO SCH (07:26)
[2017-12-06] MEDS: DOCUSATE SODIUM 100 MG CAP PO SCH (07:26)
[2017-12-06 07:30] VITALS: BP 99/64; PULSE 72; TEMP 36.4; O2SAT 98
--- NOTE | 2017-12-06 10:49 | OB/GYN Progress Note ---
ASSEMBLY REPAIRER Progress Note Date of Service Dec 06, 2017. Subjective conversation w/ patient, physical exam Ambulation: ambulating normally Voiding: no voiding problems Passing Gas: Yes Diet Tolerance: Regular Diet Lochia: Moderate Feeding Type: Breast Feeding Review of Systems Constitutional: No fever, No chills, No sweats, No weight loss, No weakness, No fatigue, No problem reported Respiratory: No cough, No sputum, No wheezing, No shortness of breath, No dyspnea on exertion, No dyspnea at rest, No hemoptysis, No problem reported Cardiac: No chest pain, No orthopnea, No PND, No edema, No claudication, No palpitations, No problem reported Breast: No see HPI, No breast lump, No change in shape, No nipple discharge, No breast pain, No problem reported Abdomen: No pain, No nausea, No vomiting, No diarrhea, No constipation, No GI bleeding, No problem reported Female : No see HPI, No dysuria, No urinary frequency, No hematuria, No incontinence, No abnormal vaginal bleeding, No vaginal discharge, No problem reported Objective Vital Signs Date Time Temp Pulse Resp B/P (MAP) Pulse Ox O2 Delivery O2 Flow Rate FiO2 12/06/17 07:30 36.4 72 18 99/64 (76) 98 Room Air 12/06/17 07:30 98 Room Air 12/05/17 23:45 36.7 70 16 118/74 (89) Room Air 12/05/17 23:45 Room Air 12/05/17 17:30 36.8 76 16 101/65 (77) 96 Room Air 12/05/17 17:30 Room Air Physical Exam General Appearance: WELL-APPEARING, WD/WN, NO APPARENT DISTRESS Respiratory/Chest: chest non-tender, lungs clear, normal breath sounds Cardiovascular: regular rate, rhythm, no edema, no gallop Abdomen: normal bowel sounds, non tender, soft Fundus: Firm Extremities: normal range of motion, non-tender, normal inspection Laboratory Results Last 24 Hours Test 12/06/17 06:21 White Blood Count 11.64 K/uL Red Blood Count 3.93 M/uL Hemoglobin 11.8 g/dL Hematocrit 34.6 % Mean Corpuscular Volume 88.0 fL Mean Corpuscular Hemoglobin 30.0 pg Mean Corpuscular Hemoglobin Concent 34.1 g/dl RDW Standard Deviation 45.0 fL RDW Coefficient of Variation 13.9 % Platelet Count 171 K/uL Mean Platelet Volume 10.2 fL Assessment and Plan Day Number: 2 Continue Routine Care: Vd day #2 pt doing well no problems disch home with instructions
[2017-12-06] MEDS ORDERED: MTR600X PO (10:50)
--- NOTE | 2017-12-06 10:51 | Discharge Instructions ---
Discharge Instructions Date of Service Dec 06, 2017. Admission Reason for Admission: Check Rupture Of Membranes Discharge Discharge Diagnosis / Problem: postop Discharge Goals Goal(s): Routine recovery after delivery Activity Recommendations Activity Limitations: as noted below ACTIVITY RECOMMENDATIONS: * Gradual return to full activity over the next 2-3 weeks. * No lifting - nothing heavier than baby over the next 2-3 weeks. * Do not engage in vigorous exercise, sexual activity or sports until cleared by your physician. * Do not drive or operate any motorized equipment until cleared by your physician. * You may shower/bathe daily. BREAST CARE: If you are not breast feeding: * Wear a supportive bra 24 hours a day for one to two weeks. * Avoid stimulating your breasts and nipples as much as possible during the first few weeks after delivery. * When taking a shower, have the warm water hit your back, not breasts. * When your breasts feel full, apply ice packs. Usually three to four times a day helps ease the discomfort. * Take a mild pain medication (Tylenol/Motrin) when you are uncomfortable. If breast feeding: * Use breast milk to lubricate nipples. Lansinoh cream may be used for sore nipples. You do not need to remove cream prior to breast feeding. If using a different brand of cream, check the label for directions regarding removal of cream prior to nursing. * Wear a supportive bra. * If having problems with breasts or breast feeding, call a retail wireless sales consultant or your health care provider. EPISIOTOMY CARE: After delivery, if you have an episiotomy (stitches), the following steps will ease discomfort and aid healing. * For the first 24 hours after delivery, place ice packs next to your episiotomy to help reduce swelling. * After the first 24 hour-period, sitz baths, either portable or in the tub, are suggested. A shower with a shower arm sprayed over the episiotomy may be comforting. * Kassi care should be done after each voiding and bowel movement. Squirt warm water from a plastic bottle over the perineum (region of the body between the anus and urinary opening) and pat dry. * Use Dermoplast to ease discomfort. Shake container. [place] directly over the episiotomy. * Place a Tucks on a clean sanitary pad next to your episiotomy. OVER THE COUNTER MEDICATION: * For discomfort or pain, you may use Acetaminophen (Tylenol), Ibuprofen (Advil ), or Naproxen (Aleve) following the package directions. * For constipation you may use Colace following the package directions. SPECIAL CARE INSTRUCTIONS: When you are discharged from the hospital, it is important for you to follow the instructions listed below: * During the first week at home, you should be able to care for yourself and your baby. In addition, the usual light household activities are encouraged. * Limit your activities to the way you feel. Do not try to clean the house or move furniture. Be sensible. * If you actively engage in sports and have done so up until the time of your delivery, you may resume these activities as soon as you feel able. This may take up to one month or even longer. Use good judgment. * Continue to take your vitamins for at least six weeks after the of your baby. * Your diet need not be limited unless you were on a special diet before your delivery. Breast-feeding mothers need around 2500 calories per day and at least 64-80 ounces of fluid per day (8 to 10 glasses). * You should eat foods from the four major food groups. Crash diets or fad diets are to be avoided. Eating lean meats, fresh fruits and vegetables, low-fat dairy products, high fiber foods and a regular exercise program, will help you get back to your pre- weight without putting your health at risk. * Constipation is sometimes a problem after delivery. Take a mild laxative as needed. If breast feeding, Milk of Magnesia is acceptable to use. You may use a suppository or Fleets enema if no episiotomy. * A daily shower or tub bath is suggested. Be sure to thoroughly and gently dry the perineum. * A bloody vaginal discharge will usually continue until around four weeks post . A small amount of bleeding may continue for as long as six weeks. Vaginal discharge changes from the bright red bleeding after delivery to pink then brownish and finally yellowish-pink before becoming white and disappearing. * Bleeding may increase with activity. Your first period may come in 4-8 weeks. If you are breast feeding, your period may be delayed even longer. * [place] (sex) can begin whenever both you and your partner feel comfortable and do not have any form of genital infection. It is recommended that you wait until after your return appointment and discuss with your physician. If you have questions, please talk to your health care practitioner. A condom should be used to prevent infection and . * Foreplay, gentle intercourse and lubrication is very important the first several times to prevent pain. A water-based lubricant such as K-Y jelly or Astroglide may be used. * Tampons may be used six weeks after delivery. * Douching should be avoided for 6 weeks after delivery. * If you have RH negative blood and your baby is RH positive, you will receive RHOGAM by injection prior to discharge. The nurse will give you a card to keep with you that has the date and place that you received RHOGAM after delivery. * During your care, you had a Rubella screen done to check for the presence of rubella antibodies in your blood. If your test was negative, you will receive a Rubella vaccine prior to discharge. This vaccine may cause a fever, soreness at the injection site and flu-like symptoms. If these symptoms persist, notify your health care practitioner. is not advised for three months after a Rubella vaccine. There is a higher chance of having a baby with defects if conceived within three months of getting the vaccine. * If you were discharged 24 hours from delivery or before 48 hours: Visiting nurses will come to your home 48 hours after discharge to assess you and your baby. The visiting nurse will meet with you while you are in the hospital to arrange a time and get directions to your home. * Verbalizes understanding of car seat law as reviewed with patient nursing. * Car Seat hand-out given and reviewed with patient by nursing. * Shaken baby information reviewed with patient by nursing. Call you doctor if: * Heavy bleeding (saturating several pads an hour) or passing clots the size of your fist. * A fever >101 degrees F (38.3 degrees C) on two occasions four hours apart and/or chills. * Unusual pain in the pelvic or vaginal areas. * "Baby Blues" lasting longer than two weeks. If you have any questions or concerns, call your health care practitioner at . FOLLOW-UP VISIT: * Please call the office at to schedule a 6 week examination. It is important you keep this appointment. * It is important for you to make arrangements for either yearly or twice yearly check-ups thereafter. . Current Hospital Diet Patient's current hospital diet: Regular OB Diet Discharge Diet Recommended Diet: Regular Diet Pending Studies Studies pending at discharge: no Medical Emergencies . Who to Call and When: Medical Emergencies: If at any time you feel your situation is an emergency, please call 911 immediately. . Non-Emergent Contact Non-Emergency issues call your: Specialist . . "Provider Documentation" section prepared by Pop Fernandez. . VTE Core Measure Inpt VTE Proph given/why not?: Treatment not indicated
[2017-12-06 11:45] VITALS: BP_DIAS 64; PULSE 72; TEMP 36.4
== END 2017-12-06 11:55 | disposition home or self-care (01) | DRG 775 ==
LOC: C.LD 23:23 → C.OPB 23:23 → C.LD 23:47 → C.OPB 23:47 → C.OBG 12-04 05:51
PROVIDERS: ADMIT Obstetrics & Gynecology; ATTEND Obstetrics & Gynecology
PROC: 0UQMXZZ Repair Vulva, External Approach (ICD-10-PCS; principal; 2017-12-04)
PROC: 10E0XZZ Delivery of Products of Conception, External Approach (ICD-10-PCS; principal; 2017-12-04)
DX: O99.824 Streptococcus B carrier state complicating childbirth (principal); O70.0 First degree perineal laceration during delivery; O69.81X0 Labor and delivery complicated by cord around neck, without compression, not applicable or unspecified; Z3A.38 38 weeks gestation of pregnancy; Z37.0 Single live birth; Z88.8 Allergy status to other drugs, medicaments and biological substances